=== PATIENT | female | born 1950 | race Caucasian/White ===

== ENCOUNTER 2025-02-08 19:31 | Observation (INO) ==
[2025-02-08 20:06] LABS: Hematocrit (blood only) 24.1 % (37.0-47.0); Hemoglobin 7.4 g/dl (12.0-16.0); Immature Granulocytes # (auto) 0.01 K/uL (0.01-0.20); Immature Granulocytes % (auto) 0.4 %; Mean Corpuscular Hemoglobin 30.3 pg (25.0-34.0); Mean Corpuscular Volume 98.8 fL (80.0-100.0); Platelet Count 91 K/uL (130-400); RDW Standard Deviation 73.8 fL (36.4-46.3); Red Blood Count 2.44 M/uL (4.20-5.40); White Blood Count 2.27 K/ul (4.8-10.8)
[2025-02-08 20:28] LABS: Anisocytosis Present; Polychromasia 1+
[2025-02-08 20:29] LABS: Alanine Aminotransferase 26.0 U/L (7-52); Albumin Globulin Ratio 1.6 (0.9-2); Alkaline Phosphatase 90.0 U/L (34-104); Anion Gap 12.0 (3-11); Bilirubin,Total 1.3 mg/dl (0.2-1.0); Blood Urea Nitrogen 43.0 mg/dl (6-23); Calcium 9.4 mg/dl (8.6-10.3); Carbon Dioxide 20.0 mmol/L (21-32); Chloride 108.0 mmol/L (98-107); Creatinine Clr Calc Pharmacy 21.3 ml/min; Globulin 2.0 gm/dl (2.5-4.0); Glucose 236.0 mg/dl (70-99(Fasting)); Magnesium 1.8 mg/dl (1.7-2.4); Potassium 4.0 mmol/L (3.5-5.1); Sodium 140.0 mmol/L (136-145); Total Protein 5.2 gm/dl (6.0-8.3)
[2025-02-08 20:46] LABS: INR 1.2 (0.9-1.1); Partial Thromboplastin Time 25 Seconds (21-31); Prothrombin Time 12.4 Seconds (9.0-12.0)
[2025-02-08 20:48] LABS: Thyroid Stimulating Hormone 5.294 uIu/ml (0.300-4.500)
--- NOTE | 2025-02-08 21:11 | Emergency Department Note ---
Impression & Plan Anemia Admission ED Provider Note HPI: History obtained from patient. The patient is a 75-year-old female who presents the emergency department with a chief complaint of weakness/fatigue and confusion. Patient has a history of iron deficiency anemia, thrombocytopenia, chronic kidney disease, cirrhosis of the liver. According to the patient's [id number] at the bedside, the patient has been receiving transfusions weekly and following with hematology/oncology through [facility] [place]. She was recently admitted to [facility], where she had a bone marrow biopsy as well as EGD and colonoscopy that the patient's [id number] tells me were ultimately unrevealing as an obvious source for the patient's anemia. Today the patient seemed to have some confusion, she was generally weak. She did not appear to be at her baseline and therefore she was brought into the ER to be assessed. On arrival here to the ED the patient is hemodynamically stable, she is alert and oriented x 3, she does not have any obvious focal deficits on my initial assessment. ROS: - Per HPI Differential Diagnosis: Symptomatic anemia, ammonia, urinary tract infection, stroke, intracranial hemorrhage, hepatic encephalopathy, viral infection, amongst other potential pathologies. *Outpatient medications and allergy history reviewed. PE: General: Alert, no acute distress HEENT: Normocephalic, trachea midline Eyes: Extraocular eye movement is intact, no scleral erythema Pulmonary: Clear to auscultation bilaterally, no wheezing Cardio: Regular rate and rhythm GI: Abdomen is soft to palpation : No suprapubic tenderness MSK: No evidence of trauma or malformation of the extremities, no edema Skin: No evidence of rash Neuro: Alert, no focal deficits Psychiatric: Cooperative INDEPENDENT INTERPRETATIONS: panel monitor: (As interpreted by myself): - An order was placed for continuous cardiac monitoring - Patient was noted to be in sinus rhythm with a rate of 95 EKG: (As interpreted by myself): Rate: 99 Rhythm: Normal sinus rhythm Intervals: Within normal limits ST changes: No ST elevation Time: 1958 Chest x-ray: (As interpreted by myself): No focal infiltrate Interventions provided in ED: - IV fluid bolus, packed red blood cells ordered Medical Decision Making: IV was established and lab work obtained, patient was placed on electronic device monitor. Lab work shows a mild leukopenia at 2.27 which is mildly changed from earlier this month, hemoglobin is stable at 7.4 which appears to be just slightly below the patient's baseline. Platelet count is 91, also at apparent baseline for the patient. CMP shows creatinine of 1.89 which the patient's family states is near her baseline. Glucose is elevated at 236, magnesium is normal, sodium is normal, potassium is normal, troponin is negative x 1. EKG per my interpretation does not show any evidence of any acute ischemic changes. Urinalysis shows trace leukocyte esterase but otherwise no evidence of infection. Alcohol level is negative. Ammonia level is pending. CT imaging of the head does not show any evidence of any acute intracranial process. The patient is alert and oriented here and does not have any focal deficits, overall unclear source for her symptoms of confusion earlier today. Given her anemia and the fact that she is scheduled for transfusion tomorrow, I think would be reasonable to admit her to the hospital overnight for observation and order her PRBC transfusion today. I discussed this with the patient and with her family member at the bedside, they are in agreement for admission. Her presentation was discussed with the on-call hospitalist, Dr. Paz, the patient was placed for admission in stable condition. Consultants/Discussions held with other healthcare providers: - Hospitalist, Dr. Paz Disposition discussion held by myself with: - Patient and patient's family at the bedside Diagnosis: 1. Generalized weakness/fatigue, acute 2. Symptomatic anemia, acute 3. Chronic kidney disease 4. Leukopenia, chronic 5. Thrombocytopenia, chronic 6. Confusion, acute Disposition: Admission Arnaldo Garland DO Emergency Medicine Past Med/Surg History Problem List (Updated 02/09/25 @ 00:42 by Arnaldo Garland DO) Anemia (Acute) Confusion Medical History (Updated 02/09/25 @ 00:42 by Arnaldo Garland DO) Gout Chronic kidney disease GERD (gastroesophageal reflux disease) Cirrhosis Anemia Glaucoma Hypothyroidism Surgical History (Updated 10/26/24 @ 07:34 by Nola Foreman RN) Tubal ligation status History of breast biopsy Social History Smoking Status: Never smoker Preferred Language: Montserratian Feels Safe at Home: Yes Allergies Allergies Allergy/AdvReac Type Severity Reaction Status Date / Time diphenhydramine Allergy Intermediate Rash Verified 02/08/25 21:22 [From Benadryl] Sulfa (Sulfonamide Allergy Intermediate Rash Verified 02/08/25 21:22 Antibiotics) Home Meds Home Medications Medication Instructions Recorded Confirmed allopurinol 100 mg tablet 100 mg PO DAILY 10/26/24 02/08/25 bumetanide 1 mg tablet 1 mg PO 3XWK 10/26/24 02/08/25 coenzyme Q10 10 mg capsule (Co 10 mg PO DAILY 10/26/24 02/08/25 Q-10) garlic 1,000 mg capsule 1,000 mg PO DAILY 10/26/24 02/08/25 levothyroxine 75 mcg tablet 75 mcg PO DAILYBB 10/26/24 02/08/25 (Synthroid) omeprazole 20 mg capsule,delayed 20 mg PO DAILY 10/26/24 02/08/25 release spironolactone 50 mg tablet 50 mg PO DAILY 10/26/24 02/08/25 ferrous sulfate 325 mg (65 mg 325 mg PO DAILY 02/08/25 02/08/25 iron) tablet (iron) magnesium oxide 300 mg PO DAILY 02/08/25 02/08/25 peg 400-propylene glycol 0.4 %-0.3 1 drp ophthalmic (eye) HS PRN Dry 02/08/25 02/08/25 % eye gel drops (GenTeal Tears Eyes Severe Gel Drops) vit C 250 mg-vit E 90 mg-zinc 40 1 tab PO BID 02/08/25 02/08/25 mg-copper 1 [id number] capsule (PreserVision AREDS-2) Results & Data (ED) Vital Signs Vital Signs - 24 hr 02/08/25 19:36 02/08/25 19:39 02/08/25 19:39 Temperature 36.0 C L Temperature Source Temporal Artery Scan Pulse Rate 97 H Pulse Rate from SpO2 Sensor Respiratory Rate 17 Respiratory Effort / Characteristics Non-Labored Spontaneous Respiratory Depth Normal Respiratory Pattern Regular Blood Pressure 128/57 L Blood Pressure Mean 80 Pulse Oximetry 100 99 Oxygen Delivery Method Room Air Room Air Room Air Sepsis Recent Fever Within 48 Hours No Sepsis New/Unexplained Change in Mental Status Yes Sepsis Action Taken by Nursing No Action Required 02/08/25 20:32 02/08/25 20:45 02/08/25 22:00 Temperature Temperature Source Pulse Rate 96 H 98 H 98 H Pulse Rate from SpO2 Sensor 98 H 98 H Respiratory Rate 23 22 Respiratory Effort / Characteristics Respiratory Depth Respiratory Pattern Blood Pressure 132/74 152/67 H Blood Pressure Mean 84 97 Pulse Oximetry Oxygen Delivery Method Sepsis Recent Fever Within 48 Hours Sepsis New/Unexplained Change in Mental Status Sepsis Action Taken by Nursing 02/08/25 23:00 02/09/25 00:09 02/09/25 00:23 Temperature 36.7 C 36.6 C Temperature Source Oral Oral Pulse Rate 94 H 98 H 94 H Pulse Rate from SpO2 Sensor 94 H Respiratory Rate 23 18 18 Respiratory Effort / Characteristics Respiratory Depth Respiratory Pattern Blood Pressure 143/62 H 142/68 H 138/64 Blood Pressure Mean 89 92 88 Pulse Oximetry 96 96 96 Oxygen Delivery Method Sepsis Recent Fever Within 48 Hours Sepsis New/Unexplained Change in Mental Status Sepsis Action Taken by Nursing Laboratory Data 02/08/25 19:49 02/08/25 19:49 Lab Results 02/07/25 02/08/25 02/08/25 Range/Units 16:32 19:49 20:51 WBC 2.27 L (4.8-10.8) K/ul RBC 2.44 L (4.20-5.40) M/uL Hgb 7.4 L (12.0-16.0) g/dl Hct 24.1 L (37.0-47.0) % MCV 98.8 (80.0-100.0) fL MCH 30.3 (25.0-34.0) pg MCHC 30.7 L (32.0-36.0) g/dL RDW Std Deviation 73.8 H (36.4-46.3) fL RDW Coeff of Carly 20.9 H (11.5-14.5) % Plt Count 91 L (130-400) K/uL MPV 10.2 (9.4-12.4) fL Immature Gran % (Auto) 0.4 % Neut % (Auto) 59.5 % Lymph % (Auto) 25.6 % Clare % (Auto) 11.0 % Eos % (Auto) 2.6 % Baso % (Auto) 0.9 % Neut # (Auto) 1.35 L (1.40-6.50) K/uL Lymph # (Auto) 0.58 L (1.20-3.40) K/uL Clare # (Auto) 0.25 (0.11-0.59) K/uL Eos # (Auto) 0.06 (0.00-0.50) K/uL Baso # (Auto) 0.02 (0.00-0.20) K/uL Immature Gran # (Auto) 0.01 (0.01-0.20) K/uL Polychromasia 1+ Anisocytosis Present PT 12.4 H (9.0-12.0) Seconds INR 1.2 H (0.9-1.1) APTT 25 (21-31) Seconds PTT Ratio 0.9 Sodium 140 (136-145) mmol/L Potassium 4.0 (3.5-5.1) mmol/L Chloride 108 H (98-107) mmol/L Carbon Dioxide 20 L (21-32) mmol/L Anion Gap 12 H (3-11) BUN 43 H (6-23) mg/dl Creatinine 1.89 H (0.6-1.2) mg/dl Est Cr Clr Drug Dosing 21.3 ml/min eGFR 27.03 BUN/Creatinine Ratio 22.8 H (10-20) Glucose 236 H (70-99(Fasting)) mg/dl POC Glucose 193 H (70-99) mg/dl Calcium 9.4 (8.6-10.3) mg/dl Magnesium 1.8 (1.7-2.4) mg/dl Total Bilirubin 1.3 H (0.2-1.0) mg/dl AST 40 H (13-39) U/L ALT 26 (7-52) U/L Alkaline Phosphatase 90 (34-104) U/L Troponin I High Sens 12.0 (0-14) pg/ml Total Protein 5.2 L (6.0-8.3) gm/dl Albumin 3.2 L (3.4-5.0) gm/dl Globulin 2.0 L (2.5-4.0) gm/dl Albumin/Globulin Ratio 1.6 (0.9-2) TSH 5.294 H (0.300-4.500) uIu/ml Urine Color Urine Appearance (Clear) Urine pH (4.5-7.5) Ur Specific [place] (1.000-1.030) Urine Protein (Negative) Urine Glucose (UA) (Negative) Urine Ketones (Negative) Urine Blood (Negative) Urine Nitrite (Negative) Urine Bilirubin (Negative) Urine Urobilinogen (Negative) Ur Leukocyte Esterase (Negative) Urine WBC (Auto) (0-5) /hpf Urine RBC (Auto) (0-2) /hpf U Hyaline Cast (Auto) (0-2) /lpf U Epithel Cells (Auto) (0-2) /hpf Urine Bacteria (Auto) (None Seen) Urine Comment Ethyl Alcohol mg/dL (<10.0) mg/dl Crossmatch See Detail 02/08/25 02/08/25 Range/Units 20:55 23:23 WBC (4.8-10.8) K/ul RBC (4.20-5.40) M/uL Hgb (12.0-16.0) g/dl Hct (37.0-47.0) % MCV (80.0-100.0) fL MCH (25.0-34.0) pg MCHC (32.0-36.0) g/dL RDW Std Deviation (36.4-46.3) fL RDW Coeff of Carly (11.5-14.5) % Plt Count (130-400) K/uL MPV (9.4-12.4) fL Immature Gran % (Auto) % Neut % (Auto) % Lymph % (Auto) % Clare % (Auto) % Eos % (Auto) % Baso % (Auto) % Neut # (Auto) (1.40-6.50) K/uL Lymph # (Auto) (1.20-3.40) K/uL Clare # (Auto) (0.11-0.59) K/uL Eos # (Auto) (0.00-0.50) K/uL Baso # (Auto) (0.00-0.20) K/uL Immature Gran # (Auto) (0.01-0.20) K/uL Polychromasia Anisocytosis PT (9.0-12.0) Seconds INR (0.9-1.1) APTT (21-31) Seconds PTT Ratio Sodium (136-145) mmol/L Potassium (3.5-5.1) mmol/L Chloride (98-107) mmol/L Carbon Dioxide (21-32) mmol/L Anion Gap (3-11) BUN (6-23) mg/dl Creatinine (0.6-1.2) mg/dl Est Cr Clr Drug Dosing ml/min eGFR BUN/Creatinine Ratio (10-20) Glucose (70-99(Fasting)) mg/dl POC Glucose (70-99) mg/dl Calcium (8.6-10.3) mg/dl Magnesium (1.7-2.4) mg/dl Total Bilirubin (0.2-1.0) mg/dl AST (13-39) U/L ALT (7-52) U/L Alkaline Phosphatase (34-104) U/L Troponin I High Sens (0-14) pg/ml Total Protein (6.0-8.3) gm/dl Albumin (3.4-5.0) gm/dl Globulin (2.5-4.0) gm/dl Albumin/Globulin Ratio (0.9-2) TSH (0.300-4.500) uIu/ml Urine Color Yellow Urine Appearance Clear (Clear) Urine pH 6.5 (4.5-7.5) Ur Specific [place] 1.007 (1.000-1.030) Urine Protein Negative (Negative) Urine Glucose (UA) Negative (Negative) Urine Ketones Negative (Negative) Urine Blood Negative (Negative) Urine Nitrite Negative (Negative) Urine Bilirubin Negative (Negative) Urine Urobilinogen Negative (Negative) Ur Leukocyte Esterase Trace H (Negative) Urine WBC (Auto) 0-5 (0-5) /hpf Urine RBC (Auto) 0-2 (0-2) /hpf U Hyaline Cast (Auto) 0-2 (0-2) /lpf U Epithel Cells (Auto) 0-2 (0-2) /hpf Urine Bacteria (Auto) None Seen (None Seen) Urine Comment Ethyl Alcohol mg/dL < 10.0 (<10.0) mg/dl Crossmatch Administered Medications Discontinued Medications Sodium Chloride (Nss) 500 mls @ 999 mls/hr IV .Q31M ONE Stop: 02/08/25 21:39 Last Infusion: 02/08/25 22:48 Dose: Infused Documented By: Admin: 02/08/25 22:17 Dose: 999 mls/hr Documented By: DIANA Imaging Data Radiologist's Impression: Chest X-Ray 02/08/25 19:39 Exam(s): XR CXR 1 VIEW EXAM: XR Chest, 1 View CLINICAL HISTORY: Reason for exam: Weakness. TECHNIQUE: Frontal view of the chest. COMPARISON: No relevant prior studies available. FINDINGS: Lungs: Artifact of the lung bases from large body habitus and portable technique. Small amount of infiltrate or atelectasis may be present within the left costophrenic angle. The lungs are otherwise clear. Pleural space: Unremarkable. No pneumothorax. Heart: Unremarkable. No cardiomegaly. Mediastinum: Unremarkable. Normal mediastinal contour. Bones/joints: Unremarkable. No acute fracture. Upper abdomen: Unremarkable as visualized. No pneumoperitoneum under the diaphragm. IMPRESSION: Artifact of the lung bases from large body habitus and portable technique. Small amount of infiltrate or atelectasis may be present within the left costophrenic angle. The lungs are otherwise clear. Electronically signed by: Kendall Feldman MD 02/08/25 22:[address] 02/08/25 21:09 Exam(s): CT HEAD Without Contrast EXAM: CT Head Without Intravenous Contrast CLINICAL HISTORY: Reason for exam: AMS. TECHNIQUE: Axial computed tomography images of the head/brain without intravenous contrast. CTDI is 37.32 mGy and DLP is 546.36 mGy-cm. Automated exposure control was utilized for the study. A dose lowering technique was utilized adhering to the principles of ALARA. COMPARISON: No relevant prior studies available. FINDINGS: Brain: Mild periventricular and deep white matter low density consistent with chronic small vessel disease and/or senescent changes. No acute large vessel infarct or intracranial hemorrhage is seen. Ventricles: Unremarkable. No ventriculomegaly. Bones/joints: Unremarkable. No acute fracture. Soft tissues: Unremarkable. Sinuses: Unremarkable as visualized. No acute sinusitis. Mastoid air cells: Unremarkable as visualized. No mastoid effusion. IMPRESSION: Mild periventricular and deep white matter low density consistent with chronic small vessel disease and/or senescent changes. No acute large vessel infarct or intracranial hemorrhage is seen. Electronically signed by: Kendall Feldman MD 02/08/25 22:14 PM Discharge Plan Visit Data Chief Complaint: Confusion Stated Complaint: DOC REFFERAL, CONFUSION, DISORIANTED, WEAK ED Provider: Arnaldo Garland Discharge Problem: Anemia Patient Disposition: Admitted As Inpatient Condition: Fair Forms Stand Alone Forms: [facility] Prescriptions Prescriptions: No Action allopurinol 100 mg Tablet 100 mg PO DAILY levothyroxine [Synthroid] 75 mcg Tablet 75 mcg PO DAILYBB coenzyme Q10 [Co Q-10] 10 mg Capsule 10 mg PO DAILY garlic 1,000 mg Capsule 1,000 mg PO DAILY omeprazole [Prilosec] 20 mg Capsule,Delayed Release(Dr/Ec) 20 mg PO DAILY Rx Instructions: ORDERED 12/20/24 FOR 14 DAYS. bumetanide [Bumex] 1 mg Tablet 1 mg PO 3XWK Rx Instructions: MON, WED, & FRI. spironolactone 50 mg Tablet 50 mg PO DAILY ferrous sulfate [iron] 325 mg (65 mg iron) Tablet 325 mg PO DAILY GenTeal Tears Severe Gel Drops 0.4-0.3 % Drops,Gel 1 drp OPHTHALMIC (EYE) HS PRN (Reason: Dry Eyes) PreserVision AREDS-2 250-90-40-1 mg Capsule 1 tab PO BID magnesium oxide 300 mg magnesium Tablet 300 mg PO DAILY Referrals Referrals: Nichole Araujo MD [Primary Care Provider] - Discharge Problem: Anemia Qualifiers: Anemia type: unspecified type Qualified Code(s): D64.9 - Anemia, unspecified
--- NOTE | 2025-02-08 22:15 | CT Scan Report ---
Exam(s): CT HEAD Without Contrast EXAM: CT Head Without Intravenous Contrast CLINICAL HISTORY: Reason for exam: AMS. TECHNIQUE: Axial computed tomography images of the head/brain without intravenous contrast. CTDI is 37.32 mGy and DLP is 546.36 mGy-cm. Automated exposure control was utilized for the study. A dose lowering technique was utilized adhering to the principles of ALARA. COMPARISON: No relevant prior studies available. FINDINGS: Brain: Mild periventricular and deep white matter low density consistent with chronic small vessel disease and/or senescent changes. No acute large vessel infarct or intracranial hemorrhage is seen. Ventricles: Unremarkable. No ventriculomegaly. Bones/joints: Unremarkable. No acute fracture. Soft tissues: Unremarkable. Sinuses: Unremarkable as visualized. No acute sinusitis. Mastoid air cells: Unremarkable as visualized. No mastoid effusion. IMPRESSION: Mild periventricular and deep white matter low density consistent with chronic small vessel disease and/or senescent changes. No acute large vessel infarct or intracranial hemorrhage is seen. Electronically signed by: Kendall Feldman MD 02/08/25 22:14 PM
[2025-02-08] MEDS: SODIUM CHLORIDE 0.9% 500 ML IV ONE (22:17)
--- NOTE | 2025-02-08 22:24 | XRay Report ---
Exam(s): XR CXR 1 VIEW EXAM: XR Chest, 1 View CLINICAL HISTORY: Reason for exam: Weakness. TECHNIQUE: Frontal view of the chest. COMPARISON: No relevant prior studies available. FINDINGS: Lungs: Artifact of the lung bases from large body habitus and portable technique. Small amount of infiltrate or atelectasis may be present within the left costophrenic angle. The lungs are otherwise clear. Pleural space: Unremarkable. No pneumothorax. Heart: Unremarkable. No cardiomegaly. Mediastinum: Unremarkable. Normal mediastinal contour. Bones/joints: Unremarkable. No acute fracture. Upper abdomen: Unremarkable as visualized. No pneumoperitoneum under the diaphragm. IMPRESSION: Artifact of the lung bases from large body habitus and portable technique. Small amount of infiltrate or atelectasis may be present within the left costophrenic angle. The lungs are otherwise clear. Electronically signed by: Kendall Feldman MD 02/08/25 22:23 PM
[2025-02-08] MEDS ORDERED: SODIUM CHLORIDE 0.9% 100 ML IV PRN (22:44)
[2025-02-08 23:37] LABS: Appearance Urine Clear (Clear); Bacteria Urine Automated None Seen (None Seen); Cast Urine Automated 0-2 /lpf (0-2); Epithelial Cell Urine Auto 0-2 /hpf (0-2); Glucose Urine UA Negative (Negative); RBC Urine Automated 0-2 /hpf (0-2); WBC Urine Automated 0-5 /hpf (0-5)
--- NOTE | 2025-02-09 00:32 | History & Physical Report ---
Date of Service February 09, 2025 Assessment & Plan (1) Confusion: Plan: 75-year-old female with past medical history significant for hereditary hemochromatosis, hyperlipidemia,hypothyroidism, idiopathic esophageal varices with bleeding, hypertension, cirrhosis of liver with ascites, acute duodenal ulcer, GERD, TONNY, CKD stage III, muscle cramps, generalized osteoarthritis, pancytopenia, symptomatic anemia, fibrocystic disease of breast who lives alone at home was brought in by [id number] because of confusion. As per daughter in law the patient was not answering text and when they went to check on her she seemed confused. Somewhat off balance. Generally ambulates without support. Could not remember the dates. Currently seems to be better as per [id number]. Currently patient able to tell her name. Knows that she is in the hospital. Could tell her date of . Could tell current month and date. Somewhat slow to answer. Denies any headache. Denies neck pain. Denies chest pain. Denies abdominal pain. Denies any pain in the legs. No cough. No feeling hot or cold. No nausea. No diarrhea or constipation. Micturating okay. Hemodynamics are okay. Patient was recently at [facility] and was discharged on 02/02/2025. She was admitted there for symptomatic anemia and workup was mostly unremarkable. She received 2 units of PRBC.. S/p EGD/colonoscopy and no bleeding was found. Bleeding scan was okay. GI planned for outpatient capsule endoscopy. Infection workup was negative for EBV, hepatitis B Anaplasma and Lyme. Advised not to take garlic supplement. She also had bone marrow biopsy and as per heme-onc notes on epic most likely she may have myelodysplasia syndrome and also possible ongoing GI blood loss causing acute on chronic anemia and also renal insufficiency contributing to anemia. As per [id number]-rx-uko the bone marrow biopsy results were not yet discussed with heme-onc. Heme-onc is planning to fax bone marrow report to Dr. Joao Calixto in [facility] and then to discuss about the results.As per [id number] her brought the patient to the hospital for type and crossmatch yesterday and she seemed okay at that time. And there was plan for blood transfusion in a.m. Patient for about last six weeks getting weekly blood transfusions. Hepatic encephalopathy Confusion UA is negative CT head unremarkable Will follow ammonia levels- cmae back elevated at 91 ordered lactulose Gi consult close monitor Pancytopenia Acute on chronic anemia Iron deficiency anemia Liver cirrhosis History of hematochromatosis Recent EGD and colonoscopy were unremarkable. There was a plan for capsule endoscopy. Recent Bleeding scan was okay. Bone marrow biopsy results Dr. Smith wants to discuss with [facility]. Follow-up with heme-onc Last 6 weeks patient getting weekly blood transfusions. There is a plan to get PRBC tomorrow. ER ordered 2 units of PRBC which will be given Will follow the labs Hypothyroidism On Synthyroid TSH 5.2 Follow-up with PCP GERD On omeprazole Liver cirrhosis Lower extremity edema Continue home Bumex and spironolactone Follow Dopplers Gout On allopurinol CKD stage III Presents creatinine 1.8 which seems to be around baseline We will follow labs DVT prophylaxis SCDs for now Monitor platelets Disposition Med/telemetry Full code History of Present Illness Chief Complaint: Confusion and anemia Primary Care Provider: Nichole Araujo MD 75-year-old female with past medical history significant for hereditary hemochromatosis, hyperlipidemia,hypothyroidism, idiopathic esophageal varices with bleeding, hypertension, cirrhosis of liver with ascites, acute duodenal ulcer, GERD, TONNY, CKD stage III, muscle cramps, generalized osteoarthritis, pancytopenia, symptomatic anemia, fibrocystic disease of breast who lives alone at home was brought in by [id number]-av-zuf because of confusion. As per daughter in law the patient was not answering text and when they went to check on her she seemed confused. Somewhat off balance. Generally ambulates without support. Could not remember the dates. Currently seems to be better as per [id number]-[id number]. Currently patient able to tell her name. Knows that she is in the hospital. Could tell her date of . Could tell current month and date. Somewhat slow to answer. Denies any headache. Denies neck pain. Denies chest pain. Denies abdominal pain. Denies any pain in the legs. No cough. No feeling hot or cold. No nausea. No diarrhea or constipation. Micturating okay. Hemodynamics are okay. Patient was recently at [facility] and was discharged on 02/02/2025. She was admitted there for symptomatic anemia and workup was mostly unremarkable. She received 2 units of PRBC.. S/p EGD/colonoscopy and no bleeding was found. Bleeding scan was okay. GI planned for outpatient capsule endoscopy. Infection workup was negative for EBV, hepatitis B Anaplasma and Lyme. Advised not to take garlic supplement. She also had bone marrow biopsy and as per heme-onc notes on epic most likely she may have myelodysplasia syndrome and also possible ongoing GI blood loss causing acute on chronic anemia and also renal insufficiency contributing to anemia. As per [id number] the bone marrow biopsy results were not yet discussed with heme-onc. Heme-onc is planning to fax bone marrow report to Dr. Joao Calixto in [facility] and then to discuss about the results.As per [id number] her brought the patient to the hospital for type and crossmatch yesterday and she seemed okay at that time. And there was plan for blood transfusion in a.m. Patient for about last six weeks getting weekly blood transfusions. Past medical history. As mentioned above. Past surgical history. Colonoscopy or EGD. Social history. . No smoking. No alcohol use. No drug use. Family history. No family history on file Allergies Allergy/AdvReac Type Severity Reaction Status Date / Time diphenhydramine Allergy Intermediate Rash Verified 02/08/25 21:22 [From Benadryl] Sulfa (Sulfonamide Allergy Intermediate Rash Verified 02/08/25 21:22 Antibiotics) Home Medications Medication Instructions Recorded Confirmed Type allopurinol 100 mg tablet 100 mg PO DAILY 10/26/24 02/08/25 History bumetanide 1 mg tablet 1 mg PO 3XWK 10/26/24 02/08/25 History coenzyme Q10 10 mg capsule (Co 10 mg PO DAILY 10/26/24 02/08/25 History Q-10) garlic 1,000 mg capsule 1,000 mg PO DAILY 10/26/24 02/08/25 History levothyroxine 75 mcg tablet 75 mcg PO DAILYBB 10/26/24 02/08/25 History (Synthroid) omeprazole 20 mg capsule,delayed 20 mg PO DAILY 10/26/24 02/08/25 History release spironolactone 50 mg tablet 50 mg PO DAILY 10/26/24 02/08/25 History ferrous sulfate 325 mg (65 mg 325 mg PO DAILY 02/08/25 02/08/25 History iron) tablet (iron) magnesium oxide 300 mg PO DAILY 02/08/25 02/08/25 History peg 400-propylene glycol 0.4 %-0.3 1 drp ophthalmic (eye) HS PRN Dry 02/08/25 02/08/25 History % eye gel drops (GenTeal Tears Eyes Severe Gel Drops) vit C 250 mg-vit E 90 mg-zinc 40 1 tab PO BID 02/08/25 02/08/25 History mg-copper 1 bl-fakssu-xuiwhj capsule (PreserVision AREDS-2) Past Med/Surg History Problem List (Updated 02/09/25 @ 00:42 by Arnaldo Garland DO) Anemia (Acute) Confusion Medical History (Updated 02/09/25 @ 00:42 by Arnaldo Garland DO) Gout Chronic kidney disease GERD (gastroesophageal reflux disease) Cirrhosis Anemia Glaucoma Hypothyroidism Surgical History (Updated 10/26/24 @ 07:34 by Nola Foreman RN) Tubal ligation status History of breast biopsy Social History Smoking Status: Never smoker Second Hand Exposure: No; Do You Dip or Chew Tobacco: No; Tobacco Cessation Education Requested by Patient: No Hx Alcohol Use: No Hx Substance Use: No Preferred Language: Icelandic Communication Ability: Effective [employer]able [employer] Work[employer] Required: No Beliefs That Will Affect Care: None Current Living Situation: Alone Other Information That Helps Us Care for You: No Feels Safe at Home: Yes Safety Concerns: Feels Safe At This Time Assistive Devices: None Review of Systems Review of Systems: All systems reviewed & are unremarkable except as noted in HPI & below Physical Exam Physical Exam: General- Not in acute distress Head- atraumatic Eyes- PERRL. ENT- oropharynx clear Neck- supple, no JVD. Lungs- clear to auscultation no wheezing or crackles Heart- regular rhythm; no murmur, no gallop. Abdomen- normal bowel sounds, soft, nontender, no distension Extremities- b/l lower ext edema present, no erythema seen Neuro- alert, oriented x 3; PERRL, no facial palsy; no dysarthria; moves extremities Results & Data Results & Data Vital Signs (Past 12 Hours) Vital Signs Temp Pulse Resp BP Pulse Ox O2 Del Method 02/09/25 00:23 36.6 C 94 H 18 138/64 96 02/09/25 00:09 36.7 C 98 H 18 142/68 H 96 02/08/25 23:00 94 H 23 143/62 H 96 02/08/25 22:00 98 H 22 152/67 H 02/08/25 20:45 98 H 23 132/74 02/08/25 20:32 96 H 02/08/25 19:39 99 Room Air 02/08/25 19:39 Room Air 02/08/25 19:36 36.0 C L 97 H 17 128/57 L 100 Room Air Diagnostic Findings Laboratory Results WBC 2.27 K/ul (4.8-10.8) L 02/08/25 19:49 RBC 2.44 M/uL (4.20-5.40) L 02/08/25 19:49 Hgb 7.4 g/dl (12.0-16.0) L 02/08/25 19:49 Hct 24.1 % (37.0-47.0) L 02/08/25 19:49 MCV 98.8 fL (80.0-100.0) 02/08/25 19:49 MCH 30.3 pg (25.0-34.0) 02/08/25 19:49 MCHC 30.7 g/dL (32.0-36.0) L 02/08/25 19:49 RDW Std Deviation 73.8 fL (36.4-46.3) H 02/08/25 19:49 RDW Coeff of Carly 20.9 % (11.5-14.5) H 02/08/25 19:49 Plt Count 91 K/uL (130-400) L 02/08/25 19:49 MPV 10.2 fL (9.4-12.4) 02/08/25 19:49 Immature Gran % (Auto) 0.4 % 02/08/25 19:49 Neut % (Auto) 59.5 % 02/08/25 19:49 Lymph % (Auto) 25.6 % 02/08/25 19:49 Baker % (Auto) 11.0 % 02/08/25 19:49 Eos % (Auto) 2.6 % 02/08/25 19:49 Baso % (Auto) 0.9 % 02/08/25 19:49 Neut # (Auto) 1.35 K/uL (1.40-6.50) L 02/08/25 19:49 Lymph # (Auto) 0.58 K/uL (1.20-3.40) L 02/08/25 19:49 Baker # (Auto) 0.25 K/uL (0.11-0.59) 02/08/25 19:49 Eos # (Auto) 0.06 K/uL (0.00-0.50) 02/08/25 19:49 Baso # (Auto) 0.02 K/uL (0.00-0.20) 02/08/25 19:49 Immature Gran # (Auto) 0.01 K/uL (0.01-0.20) 02/08/25 19:49 Polychromasia 1+ 02/08/25 19:49 Anisocytosis Present 02/08/25 19:49 PT 12.4 Seconds (9.0-12.0) H 02/08/25 19:49 INR 1.2 (0.9-1.1) H 02/08/25 19:49 APTT 25 Seconds (21-31) 02/08/25 19:49 PTT Ratio 0.9 02/08/25 19:49 Sodium 140 mmol/L (136-145) 02/08/25 19:49 Potassium 4.0 mmol/L (3.5-5.1) 02/08/25 19:49 Chloride 108 mmol/L (98-107) H 02/08/25 19:49 Carbon Dioxide 20 mmol/L (21-32) L 02/08/25 19:49 Anion Gap 12 (3-11) H 02/08/25 19:49 BUN 43 mg/dl (6-23) H 02/08/25 19:49 Creatinine 1.89 mg/dl (0.6-1.2) H 02/08/25 19:49 Est Cr Clr Drug Dosing 21.3 ml/min 02/08/25 19:49 eGFR 27.03 02/08/25 19:49 BUN/Creatinine Ratio 22.8 (10-20) H 02/08/25 19:49 Glucose 236 mg/dl (70-99(Fasting)) H 02/08/25 19:49 POC Glucose 193 mg/dl (70-99) H 02/08/25 20:51 Calcium 9.4 mg/dl (8.6-10.3) 02/08/25 19:49 Magnesium 1.8 mg/dl (1.7-2.4) 02/08/25 19:49 Total Bilirubin 1.3 mg/dl (0.2-1.0) H 02/08/25 19:49 AST 40 U/L (13-39) H 02/08/25 19:49 ALT 26 U/L (7-52) 02/08/25 19:49 Alkaline Phosphatase 90 U/L (34-104) 02/08/25 19:49 Troponin I High Sens 12.0 pg/ml (0-14) 02/08/25 19:49 Total Protein 5.2 gm/dl (6.0-8.3) L 02/08/25 19:49 Albumin 3.2 gm/dl (3.4-5.0) L 02/08/25 19:49 Globulin 2.0 gm/dl (2.5-4.0) L 02/08/25 19:49 Albumin/Globulin Ratio 1.6 (0.9-2) 02/08/25 19:49 TSH 5.294 uIu/ml (0.300-4.500) H 02/08/25 19:49 Urine Color Yellow 02/08/25 23:23 Urine Appearance Clear (Clear) 02/08/25 23:23 Urine pH 6.5 (4.5-7.5) 02/08/25 23:23 Ur Specific [place] 1.007 (1.000-1.030) 02/08/25 23:23 Urine Protein Negative (Negative) 02/08/25 23:23 Urine Glucose (UA) Negative (Negative) 02/08/25 23:23 Urine Ketones Negative (Negative) 02/08/25 23:23 Urine Blood Negative (Negative) 02/08/25 23:23 Urine Nitrite Negative (Negative) 02/08/25 23:23 Urine Bilirubin Negative (Negative) 02/08/25 23:23 Urine Urobilinogen Negative (Negative) 02/08/25 23:23 Ur Leukocyte Esterase Trace (Negative) H 02/08/25 23:23 Urine WBC (Auto) 0-5 /hpf (0-5) 02/08/25 23:23 Urine RBC (Auto) 0-2 /hpf (0-2) 02/08/25 23:23 U Hyaline Cast (Auto) 0-2 /lpf (0-2) 02/08/25 23:23 U Epithel Cells (Auto) 0-2 /hpf (0-2) 02/08/25 23:23 Urine Bacteria (Auto) None Seen (None Seen) 02/08/25 23:23 Urine Comment 02/08/25 23:23 Ethyl Alcohol mg/dL < 10.0 mg/dl (<10.0) 02/08/25 20:55 Crossmatch See Detail 02/07/25 16:32 Impressions Chest X-Ray 02/08/25 19:39 Exam(s): XR CXR 1 VIEW EXAM: XR Chest, 1 View CLINICAL HISTORY: Reason for exam: Weakness. TECHNIQUE: Frontal view of the chest. COMPARISON: No relevant prior studies available. FINDINGS: Lungs: Artifact of the lung bases from large body habitus and portable technique. Small amount of infiltrate or atelectasis may be present within the left costophrenic angle. The lungs are otherwise clear. Pleural space: Unremarkable. No pneumothorax. Heart: Unremarkable. No cardiomegaly. Mediastinum: Unremarkable. Normal mediastinal contour. Bones/joints: Unremarkable. No acute fracture. Upper abdomen: Unremarkable as visualized. No pneumoperitoneum under the diaphragm. IMPRESSION: Artifact of the lung bases from large body habitus and portable technique. Small amount of infiltrate or atelectasis may be present within the left costophrenic angle. The lungs are otherwise clear. Electronically signed by: Kendall Feldman MD 02/08/25 22:[address] 02/08/25 21:09 Exam(s): CT HEAD Without Contrast EXAM: CT Head Without Intravenous Contrast CLINICAL HISTORY: Reason for exam: AMS. TECHNIQUE: Axial computed tomography images of the head/brain without intravenous contrast. CTDI is 37.32 mGy and DLP is 546.36 mGy-cm. Automated exposure control was utilized for the study. A dose lowering technique was utilized adhering to the principles of ALARA. COMPARISON: No relevant prior studies available. FINDINGS: Brain: Mild periventricular and deep white matter low density consistent with chronic small vessel disease and/or senescent changes. No acute large vessel infarct or intracranial hemorrhage is seen. Ventricles: Unremarkable. No ventriculomegaly. Bones/joints: Unremarkable. No acute fracture. Soft tissues: Unremarkable. Sinuses: Unremarkable as visualized. No acute sinusitis. Mastoid air cells: Unremarkable as visualized. No mastoid effusion. IMPRESSION: Mild periventricular and deep white matter low density consistent with chronic small vessel disease and/or senescent changes. No acute large vessel infarct or intracranial hemorrhage is seen. Electronically signed by: Kendall Feldman MD 02/08/25 22:14 PM ECG Additional Comments: ECG. Normal sinus rhythm with rate of 99. No acute ST changes seen. QTc 428 Code Status & VTE Plan VTE Prophylaxis Plan VTE Prophylaxis will be ordered: Yes
[2025-02-09] MEDS: LACTULOSE SYRUP 20 GM/30 ML UDC PO STA (01:19)
[2025-02-09] MEDS ORDERED: NITROGLYCERIN SL 0.4 MG/TAB TAB SL PRN (01:27)
[2025-02-09] MEDS ORDERED: ARTIFICIAL TEARS OP PRN (01:52)
[2025-02-09 06:00] LABS: Hematocrit (blood only) 30.4 % (37.0-47.0); Hemoglobin 9.7 g/dl (12.0-16.0)
[2025-02-09 07:36] LABS: Hematocrit (blood only) 28.2 % (37.0-47.0); Hemoglobin 9.1 g/dl (12.0-16.0); Immature Granulocytes # (auto) 0.01 K/uL (0.01-0.20); Immature Granulocytes % (auto) 0.5 %; Mean Corpuscular Hemoglobin 30.1 pg (25.0-34.0); Mean Corpuscular Volume 93.4 fL (80.0-100.0); Platelet Count 67 K/uL (130-400); RDW Standard Deviation 65.1 fL (36.4-46.3); Red Blood Count 3.02 M/uL (4.20-5.40); White Blood Count 1.90 K/ul (4.8-10.8)
[2025-02-09 07:56] LABS: Anion Gap 8.0 (3-11); Blood Urea Nitrogen 38.0 mg/dl (6-23); Calcium 9.1 mg/dl (8.6-10.3); Carbon Dioxide 21.0 mmol/L (21-32); Chloride 114.0 mmol/L (98-107); Creatinine Clr Calc Pharmacy 24.6 ml/min; Glucose 131.0 mg/dl (70-99(Fasting)); Magnesium 1.7 mg/dl (1.7-2.4); Potassium 3.7 mmol/L (3.5-5.1); Sodium 143.0 mmol/L (136-145)
[2025-02-09] MEDS: LEVOTHYROXINE SODIUM 75 MCG TABLET PO SCH (07:57)
--- NOTE | 2025-02-09 08:53 | Ultrasound Report ---
BILATERAL LOWER EXTREMITY VENOUS DOPPLER HISTORY: Acute pain and swelling of the lower legs b/l lower ext edema. dvt? COMPARISON STUDY: None. FINDINGS: Subcutaneous edema. There is normal compressibility, flow, and augmentation within the bila teral lower extremity deep venous systems. IMPRESSION: No DVT within the right or left lower extremity. ACT 112: Negative or not required by law. Electronically signed by: Ken Mullins M.D. 02/09/2025 8:52 AM
[2025-02-09] MEDS ORDERED: FERROUS SULFATE 325 MG TAB PO SCH (09:00)
[2025-02-09] MEDS ORDERED: NON-FORMULARY MEDICATION (Coenzyme Q10 [Co Q-10] 10 mg Capsule) PO SCH (09:00)
[2025-02-09] MEDS ORDERED: BUMETANIDE 1 MG TAB PO SCH (09:00)
--- NOTE | 2025-02-09 09:02 | Gastrointestinal Consultation ---
Date of Consultation February 09, 2025 Assessment & Plan (1) Confusion: 75 year old female with history of ?myelodysplastic syndrome, iron deficiency anemia, hereditary hemochromatosis requiring phlebotomies, cirrhosis with splenomegaly, portal hypertension, thrombocytopenia, GERD, duodenal ulcer, hypothyroidism, CKD stage III admitted w/ confusion - elevated ammonia 1. Confusion, elevated ammonia - Rule out infections - Blood cultures - Urine cultures - Chest XR - Head CT - ABD US to assess for ascites - Start lactulose titrated to 2/3 BMs daily - Frequent mental status evaluation 2. Cirrhosis - MELD 14 - MELD labs every 6 months - ABD imaging w/ AFP every 6 months - EGD every 1-2 years - No ETOH - No NSAIDs - Avoid hepatotoxin - Low NA diet, less than 2G daily - Less than 2G acetaminophen containing products daily 3. SHAR - Recent EGD/Colonoscopy this month - Continue with recommendations per OP [facility] GI/Hepatology GI - Agree w/ hematology evaluation I spent a total of 60 minutes on the date of service in review of patient's record, and previously obtained information in person and appropriate medical visit, discussion and education of plan, with patient and/or caregiver, placing orders for tests/referral/procedures as medically necessary and documentation of pertinent clinical information in patient's medical records for their visit today. Supervising Physician Co-Signing Physician Notes The patient was seen and evaluated. Hospital labs, data, records and imaging reviewed at length. The case was discussed and reviewed with the GI nurse practitioner and I agree with her assessment plan as outlined above. Treatment plan was discussed with the patient and her daughter present at the time of interview. 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 I agree with workup for underlying infection. The patient also is undergoing iron deficiency workup and is now status post EGD and colonoscopy. She is pending small bowel evaluation. It is certainly possible that she has small bowel AVM's as are more common in patients with cirrhotic liver disease with a chronic indolent type bleeding making her more prone to hepatic encephalopathy. The patient is advised to continue lactulose. Consider adding Xifaxan 550 mg p.o. twice daily if refractory. Thank you for the courtesy of this consultation. History of Present Illness Reason for Consultation: elevated ammonia Requesting Physician: Frankie Gold MD Attending Physician: Frankie Gold MD History of Present Illness 75 year old female with history of ?myelodysplastic syndrome, iron deficiency anemia, hereditary hemochromatosis requiring phlebotomies, cirrhosis with splenomegaly, portal hypertension, thrombocytopenia, GERD, duodenal ulcer, hypothyroidism, CKD stage III admitted w/ confusion. Per family/patient she was feeling fatigued/weak since discharge from [facility]. Daughter grew concerned when she didnt answer a text, found confused. Notes this AM, is feeling better. Awake, alert to person/place/time. Denies abd pain, nausea/vomiting/black/bloody stools. No fever, chills, CP, SOB. Decompensations: Varices: no Ascites: no SBP: no HRS: no HE: no HCC: no Screening: EGD: 02/2024- no varices Colonoscopy 12/2023- no polyps, diverticulosis Liver imaging: abdominal US 03/2024- no liver lesions seen EGD 01/31/25: Z-line regular, 39 cm from the incisors. - Normal esophagus. No esophageal varices. - Portal hypertensive gastropathy. No bleeding. No gastric varices. No GAVE. - Mild antral gastritis. - Normal duodenal bulb and second portion of the duodenum. - No specimens collected. Colonoscopy 01/31/25: Preparation of the colon was fair. - Diverticulosis in the sigmoid colon and in the d escending colon. - Internal hemorrhoids. - No specimens collected. Allergies Allergy/AdvReac Type Severity Reaction Status Date / Time diphenhydramine Allergy Intermediate Rash Verified 02/08/25 21:22 [From Benadryl] Sulfa (Sulfonamide Allergy Intermediate Rash Verified 02/08/25 21:22 Antibiotics) Home Medications Medication Instructions Recorded Confirmed Type allopurinol 100 mg tablet 100 mg PO DAILY 10/26/24 02/08/25 History bumetanide 1 mg tablet 1 mg PO 3XWK 10/26/24 02/08/25 History coenzyme Q10 10 mg capsule (Co 10 mg PO DAILY 10/26/24 02/08/25 History Q-10) garlic 1,000 mg capsule 1,000 mg PO DAILY 10/26/24 02/08/25 History levothyroxine 75 mcg tablet 75 mcg PO DAILYBB 10/26/24 02/08/25 History (Synthroid) omeprazole 20 mg capsule,delayed 20 mg PO DAILY 10/26/24 02/08/25 History release spironolactone 50 mg tablet 50 mg PO DAILY 10/26/24 02/08/25 History ferrous sulfate 325 mg (65 mg 325 mg PO DAILY 02/08/25 02/08/25 History iron) tablet (iron) magnesium oxide 300 mg PO DAILY 02/08/25 02/08/25 History peg 400-propylene glycol 0.4 %-0.3 1 drp ophthalmic (eye) HS PRN Dry 02/08/25 02/08/25 History % eye gel drops (GenTeal Tears Eyes Severe Gel Drops) vit C 250 mg-vit E 90 mg-zinc 40 1 tab PO BID 02/08/25 02/08/25 History mg-copper 1 pe-pehgja-ldaryo capsule (PreserVision AREDS-2) Patient History Medical History (Updated 02/09/25 @ 00:42 by Arnaldo Garland DO) Gout Chronic kidney disease GERD (gastroesophageal reflux disease) Cirrhosis Anemia Glaucoma Hypothyroidism Surgical History (Updated 10/26/24 @ 07:34 by Nola Foreman RN) Tubal ligation status History of breast biopsy Social History Smoking Status: Never smoker Second Hand Exposure: No; Do You Dip or Chew Tobacco: No; Hx Alcohol Use: No Hx Substance Use: No Preferred Language: Irish Communication Ability: Effective Materials Management Supervisor Required: No Beliefs That Will Affect Care: None Current Living Situation: Alone Feels Safe at Home: Yes Assistive Devices: None Review of Systems Review of Systems: All other findings negative except as noted in HPI. Physical Exam Constitutional: WD/WN, vitals as above Respiratory: normal respiratory effort, lungs clear to auscultation Cardiovascular: RRR, no murmur, no edema Gastrointestinal (Abdomen): normal bowel sounds, soft, nontender, no hepatosplenomegaly Skin: no rashes, warm and dry Results & Data Vital Signs (Past 12 Hours) Vital Signs Temp Pulse Pulse Resp BP BP Pulse Ox 02/09/25 07:43 84 18 151/72 H 95 02/09/25 04:32 98.1 F 89 19 96/59 L 95 02/09/25 03:32 98.1 F 90 19 146/65 H 95 02/09/25 03:02 97.9 F 91 H 20 140/71 95 02/09/25 02:47 98.1 F 93 H 20 132/69 95 02/09/25 02:45 98.1 F 93 H 20 132/69 95 02/09/25 02:30 98.8 F 93 H 18 140/68 99 02/09/25 02:29 94 H 18 99 02/09/25 02:15 84 18 138/87 99 02/09/25 01:27 94 H 18 140/68 98 02/09/25 01:27 02/09/25 01:12 98.2 F 96 H 16 147/69 H 98 02/09/25 00:42 98.2 F 94 H 18 138/62 98 02/09/25 00:27 98.2 F 94 H 18 137/68 100 02/09/25 00:23 97.9 F 94 H 18 138/64 96 02/09/25 00:09 98.1 F 98 H 18 142/68 H 96 02/08/25 23:00 94 H 23 143/62 H 96 02/08/25 22:00 98 H 22 152/67 H Pulse Ox O2 Del Method O2 Del Method 02/09/25 07:43 Room Air 02/09/25 04:32 02/09/25 03:32 02/09/25 03:02 02/09/25 02:47 02/09/25 02:45 02/09/25 02:30 02/09/25 02:29 Room Air 02/09/25 02:15 02/09/25 01:27 Room Air 02/09/25 01:27 97 Room Air 02/09/25 01:12 02/09/25 00:42 02/09/25 00:27 02/09/25 00:23 02/09/25 00:09 02/08/25 23:00 02/08/25 22:00 Laboratory Results 02/09/25 02/09/25 02/09/25 Range/Units 07:14 05:41 00:18 WBC 1.90 L (4.8-10.8) K/ul RBC 3.02 L (4.20-5.40) M/uL Hgb 9.1 L 9.7 L (12.0-16.0) g/dl Hct 28.2 L 30.4 L (37.0-47.0) % MCV 93.4 D (80.0-100.0) fL MCH 30.1 (25.0-34.0) pg MCHC 32.3 (32.0-36.0) g/dL RDW Std Deviation 65.1 H (36.4-46.3) fL RDW Coeff of Carly 19.9 H (11.5-14.5) % Plt Count 67 L (130-400) K/uL MPV 9.5 (9.4-12.4) fL Immature Gran % (Auto) 0.5 % Neut % (Auto) 53.1 % Lymph % (Auto) 26.3 % [place] % (Auto) 15.3 % Eos % (Auto) 3.7 % Baso % (Auto) 1.1 % Neut # (Auto) 1.01 L (1.40-6.50) K/uL Lymph # (Auto) 0.50 L (1.20-3.40) K/uL [place] # (Auto) 0.29 (0.11-0.59) K/uL Eos # (Auto) 0.07 (0.00-0.50) K/uL Baso # (Auto) 0.02 (0.00-0.20) K/uL Immature Gran # (Auto) 0.01 (0.01-0.20) K/uL Polychromasia Anisocytosis PT (9.0-12.0) Seconds INR (0.9-1.1) APTT (21-31) Seconds PTT Ratio Sodium 143 (136-145) mmol/L Potassium 3.7 (3.5-5.1) mmol/L Chloride 114 H (98-107) mmol/L Carbon Dioxide 21 (21-32) mmol/L Anion Gap 8 (3-11) BUN 38 H (6-23) mg/dl Creatinine 1.64 H (0.6-1.2) mg/dl Est Cr Clr Drug Dosing 24.6 ml/min eGFR 32.05 BUN/Creatinine Ratio 23.2 H (10-20) Glucose 131 H (70-99(Fasting)) mg/dl POC Glucose (70-99) mg/dl Calcium 9.1 (8.6-10.3) mg/dl Magnesium 1.7 (1.7-2.4) mg/dl Total Bilirubin (0.2-1.0) mg/dl AST (13-39) U/L ALT (7-52) U/L Alkaline Phosphatase (34-104) U/L Ammonia 79.0 H 91.0 H (18-72) umol/L Troponin I High Sens (0-14) pg/ml Total Protein (6.0-8.3) gm/dl Albumin (3.4-5.0) gm/dl Globulin (2.5-4.0) gm/dl Albumin/Globulin Ratio (0.9-2) TSH (0.300-4.500) uIu/ml Urine Color Urine Appearance (Clear) Urine pH (4.5-7.5) Ur Specific [place] (1.000-1.030) Urine Protein (Negative) Urine Glucose (UA) (Negative) Urine Ketones (Negative) Urine Blood (Negative) Urine Nitrite (Negative) Urine Bilirubin (Negative) Urine Urobilinogen (Negative) Ur Leukocyte Esterase (Negative) Urine WBC (Auto) (0-5) /hpf Urine RBC (Auto) (0-2) /hpf U Hyaline Cast (Auto) (0-2) /lpf U Epithel Cells (Auto) (0-2) /hpf Urine Bacteria (Auto) (None Seen) Urine Comment Ethyl Alcohol mg/dL (<10.0) mg/dl Crossmatch 02/08/25 02/08/25 02/08/25 Range/Units 23:23 20:55 20:51 WBC (4.8-10.8) K/ul RBC (4.20-5.40) M/uL Hgb (12.0-16.0) g/dl Hct (37.0-47.0) % MCV (80.0-100.0) fL MCH (25.0-34.0) pg MCHC (32.0-36.0) g/dL RDW Std Deviation (36.4-46.3) fL RDW Coeff of Carly (11.5-14.5) % Plt Count (130-400) K/uL MPV (9.4-12.4) fL Immature Gran % (Auto) % Neut % (Auto) % Lymph % (Auto) % [place] % (Auto) % Eos % (Auto) % Baso % (Auto) % Neut # (Auto) (1.40-6.50) K/uL Lymph # (Auto) (1.20-3.40) K/uL [place] # (Auto) (0.11-0.59) K/uL Eos # (Auto) (0.00-0.50) K/uL Baso # (Auto) (0.00-0.20) K/uL Immature Gran # (Auto) (0.01-0.20) K/uL Polychromasia Anisocytosis PT (9.0-12.0) Seconds INR (0.9-1.1) APTT (21-31) Seconds PTT Ratio Sodium (136-145) mmol/L Potassium (3.5-5.1) mmol/L Chloride (98-107) mmol/L Carbon Dioxide (21-32) mmol/L Anion Gap (3-11) BUN (6-23) mg/dl Creatinine (0.6-1.2) mg/dl Est Cr Clr Drug Dosing ml/min eGFR BUN/Creatinine Ratio (10-20) Glucose (70-99(Fasting)) mg/dl POC Glucose 193 H (70-99) mg/dl Calcium (8.6-10.3) mg/dl Magnesium (1.7-2.4) mg/dl Total Bilirubin (0.2-1.0) mg/dl AST (13-39) U/L ALT (7-52) U/L Alkaline Phosphatase (34-104) U/L Ammonia (18-72) umol/L Troponin I High Sens (0-14) pg/ml Total Protein (6.0-8.3) gm/dl Albumin (3.4-5.0) gm/dl Globulin (2.5-4.0) gm/dl Albumin/Globulin Ratio (0.9-2) TSH (0.300-4.500) uIu/ml Urine Color Yellow Urine Appearance Clear (Clear) Urine pH 6.5 (4.5-7.5) Ur Specific [place] 1.007 (1.000-1.030) Urine Protein Negative (Negative) Urine Glucose (UA) Negative (Negative) Urine Ketones Negative (Negative) Urine Blood Negative (Negative) Urine Nitrite Negative (Negative) Urine Bilirubin Negative (Negative) Urine Urobilinogen Negative (Negative) Ur Leukocyte Esterase Trace H (Negative) Urine WBC (Auto) 0-5 (0-5) /hpf Urine RBC (Auto) 0-2 (0-2) /hpf U Hyaline Cast (Auto) 0-2 (0-2) /lpf U Epithel Cells (Auto) 0-2 (0-2) /hpf Urine Bacteria (Auto) None Seen (None Seen) Urine Comment Ethyl Alcohol mg/dL < 10.0 (<10.0) mg/dl Crossmatch 02/08/25 02/07/25 Range/Units 19:49 16:32 WBC 2.27 L (4.8-10.8) K/ul RBC 2.44 L (4.20-5.40) M/uL Hgb 7.4 L (12.0-16.0) g/dl Hct 24.1 L (37.0-47.0) % MCV 98.8 (80.0-100.0) fL MCH 30.3 (25.0-34.0) pg MCHC 30.7 L (32.0-36.0) g/dL RDW Std Deviation 73.8 H (36.4-46.3) fL RDW Coeff of Carly 20.9 H (11.5-14.5) % Plt Count 91 L (130-400) K/uL MPV 10.2 (9.4-12.4) fL Immature Gran % (Auto) 0.4 % Neut % (Auto) 59.5 % Lymph % (Auto) 25.6 % [place] % (Auto) 11.0 % Eos % (Auto) 2.6 % Baso % (Auto) 0.9 % Neut # (Auto) 1.35 L (1.40-6.50) K/uL Lymph # (Auto) 0.58 L (1.20-3.40) K/uL [place] # (Auto) 0.25 (0.11-0.59) K/uL Eos # (Auto) 0.06 (0.00-0.50) K/uL Baso # (Auto) 0.02 (0.00-0.20) K/uL Immature Gran # (Auto) 0.01 (0.01-0.20) K/uL Polychromasia 1+ Anisocytosis Present PT 12.4 H (9.0-12.0) Seconds INR 1.2 H (0.9-1.1) APTT 25 (21-31) Seconds PTT Ratio 0.9 Sodium 140 (136-145) mmol/L Potassium 4.0 (3.5-5.1) mmol/L Chloride 108 H (98-107) mmol/L Carbon Dioxide 20 L (21-32) mmol/L Anion Gap 12 H (3-11) BUN 43 H (6-23) mg/dl Creatinine 1.89 H (0.6-1.2) mg/dl Est Cr Clr Drug Dosing 21.3 ml/min eGFR 27.03 BUN/Creatinine Ratio 22.8 H (10-20) Glucose 236 H (70-99(Fasting)) mg/dl POC Glucose (70-99) mg/dl Calcium 9.4 (8.6-10.3) mg/dl Magnesium 1.8 (1.7-2.4) mg/dl Total Bilirubin 1.3 H (0.2-1.0) mg/dl AST 40 H (13-39) U/L ALT 26 (7-52) U/L Alkaline Phosphatase 90 (34-104) U/L Ammonia (18-72) umol/L Troponin I High Sens 12.0 (0-14) pg/ml Total Protein 5.2 L (6.0-8.3) gm/dl Albumin 3.2 L (3.4-5.0) gm/dl Globulin 2.0 L (2.5-4.0) gm/dl Albumin/Globulin Ratio 1.6 (0.9-2) TSH 5.294 H (0.300-4.500) uIu/ml Urine Color Urine Appearance (Clear) Urine pH (4.5-7.5) Ur Specific [place] (1.000-1.030) Urine Protein (Negative) Urine Glucose (UA) (Negative) Urine Ketones (Negative) Urine Blood (Negative) Urine Nitrite (Negative) Urine Bilirubin (Negative) Urine Urobilinogen (Negative) Ur Leukocyte Esterase (Negative) Urine WBC (Auto) (0-5) /hpf Urine RBC (Auto) (0-2) /hpf U Hyaline Cast (Auto) (0-2) /lpf U Epithel Cells (Auto) (0-2) /hpf Urine Bacteria (Auto) (None Seen) Urine Comment Ethyl Alcohol mg/dL (<10.0) mg/dl Crossmatch See Detail PG Care Time/CCT Total # of Minutes Spent Total Time Spent with Patient: Total time spent is greater than 50% in coordination of care (as documented) at patient's floor/unit and/or counseling patient: Coding Level of Care Code 58488 INT INP/OBS CARE MIN Diagnoses Confusion R41.0
[2025-02-09] MEDS: SPIRONOLACTONE 25 MG TAB PO SCH (09:58)
[2025-02-09] MEDS: CEROVITE ADV FORMULA TAB PO SCH (09:58)
[2025-02-09] MEDS: MAGNESIUM OXIDE 400 MG TAB PO SCH (09:58)
[2025-02-09] MEDS: LACTULOSE SYRUP 20 GM/30 ML UDC PO SCH (10:00)
[2025-02-09] MEDS: LACTATED RINGER'S 1,000 ML IV SCH (10:08)
--- NOTE | 2025-02-09 17:46 | Communication Note ---
Patient seen and examined at bedside. Daughter present. Patient doing much better in ED. States she does not remember much from yesterday, was very confused. Per daughter patient close to baseline now. No other symptoms. On exam, no jaundice or asterixis noted, alert and orriented x3 and doing well. Ammonia level high, lymphopenia noted with tachycardia concern for SIRS criteria, creatinine downtrending. Presentation suggestive of hepatic encephalopathy 2/2 hemochromatosis vs. less likely sepsis from left lower lobe CAP. Ordered cultures, start ceftiraxone/azithromycin for potential CAP, given gentle fluids. Appreciate GI input, agree with lactulose and ascites survey. Date of Service: February 09, 2025
[2025-02-09] MEDS: cefTRIAXone SODIUM 2,000 MG/50 ML BAG IV SCH (19:03)
[2025-02-09] MEDS: AZITHROMYCIN 250 MG TAB PO SCH (19:33)
[2025-02-10 06:05] LABS: Hematocrit (blood only) 26.0 % (37.0-47.0); Hemoglobin 8.3 g/dl (12.0-16.0); Mean Corpuscular Hemoglobin 30.4 pg (25.0-34.0); Mean Corpuscular Volume 95.2 fL (80.0-100.0); Platelet Count 66 K/uL (130-400); RDW Standard Deviation 67.8 fL (36.4-46.3); Red Blood Count 2.73 M/uL (4.20-5.40); White Blood Count 2.13 K/ul (4.8-10.8)
--- NOTE | 2025-02-10 06:09 | Electrocardiogram Report ---
Test Reason : Blood Pressure : */* mmHG Vent. Rate : 99 BPM Atrial Rate : 99 BPM P-R Int : 158 ms QRS Dur : 70 ms QT Int : 334 ms P-R-T Axes : 69 13 86 degrees QTcB Int : 428 ms Normal sinus rhythm Cannot rule out Anterior infarct , age undetermined Nonspecific ST abnormality Abnormal ECG No previous ECGs available Confirmed by Jonas Burnett ([id number]) on 02/10/2025 6:08:36 AM Referred By: Matthew Smith Confirmed By: Jonas Burnett
[2025-02-10 06:25] LABS: Alanine Aminotransferase 28.0 U/L (7-52); Albumin Globulin Ratio 1.8 (0.9-2); Alkaline Phosphatase 81.0 U/L (34-104); Anion Gap 8.0 (3-11); Bilirubin,Total 1.3 mg/dl (0.2-1.0); Blood Urea Nitrogen 34.0 mg/dl (6-23); Calcium 8.8 mg/dl (8.6-10.3); Carbon Dioxide 20.0 mmol/L (21-32); Chloride 115.0 mmol/L (98-107); Creatinine Clr Calc Pharmacy 23.5 ml/min; Globulin 1.6 gm/dl (2.5-4.0); Glucose 107.0 mg/dl (70-99(Fasting)); Potassium 3.6 mmol/L (3.5-5.1); Sodium 143.0 mmol/L (136-145); Total Protein 4.5 gm/dl (6.0-8.3)
--- NOTE | 2025-02-10 11:02 | Gastroenterology Progress Note ---
Date of Service February 10, 2025 Assessment & Plan (1) Confusion: (2) Anemia: (3) Cirrhosis: (4) Cirrhosis due to hemochromatosis: (5) Hepatic encephalopathy: Plan 75 year old female with multiple comorbidities including hereditary hemochromatosis with cirrhosis, previous phlebotomy, portal hypertension (splenomegaly, thrombocytopenia), reflux, duodenal ulcer, chronic kidney stage III presenting with change in mental status, noted to have elevated ammonia likely encephalopathic. 1. Change in mental status, hyperammonemia --Patient clinically improved with lactulose therapy --Continue lactulose titrated to 2-3 bowel movements daily. If unable to tolerate then consider adding or replacing with Xifaxan 550 mg p.o. twice daily --No clear evidence of active infection --Potential slow GI bleeding could contribute to hepatic encephalopathy -- CT head shows small vessel disease consistent with normal aging. No masses are appreciated. --No asterixis elicited on today's exam. 2. Cirrhosis --Patent with relatively well compensated liver disease with a MELD score of 14 --Close follow-up for hepatocellular carcinoma including abdominal imaging twice yearly along with annual alpha-fetoprotein testing --Upper endoscopy for variceal screening annually. The patient is status post EGD and colonoscopy with her regular production support analyst as part of iron deficiency anemia workup. - Low NA diet, less than 2G daily - Less than 2G acetaminophen containing products daily 3. SHAR - Patient is status post endoluminal evaluation with EGD and colonoscopy without clear etiology. Given patient's history of cirrhosis, she is at increased risk for small bowel angiectasia with slow indolent bleeding. Capsule endoscopy is recommended (outpatient). --Nuclear bleeding scan is not surprisingly unremarkable - Continue with recommendations per OP [facility]/Hepatology GI - Agree w/ hematology evaluation Admission and Anticipated Discharge Date Admission Date: February 09, 2025 Subjective The patient was again seen in the ER. She notes being much more lucid when compared to previous. She is anxious to go home. She does not have any symptoms at this time including abdominal pain, nausea, vomiting. She has not seen any evidence of bleeding. Review of Systems Review of Systems: All systems reviewed & are unremarkable except as noted in HPI & below Physical Exam Constitutional: WD/WN, vitals as above Respiratory: normal respiratory effort, lungs clear to auscultation Cardiovascular: RRR, no murmur, no edema Gastrointestinal (Abdomen): normal bowel sounds, soft, nontender, no hepatosplenomegaly Results & Data Results & Data Vital Signs (Past 12 Hours) Vital Signs Pulse Pulse Resp BP Pulse Ox Pulse Ox O2 Del Method 02/10/25 10:00 86 16 141/59 H 98 Room Air 02/10/25 07:11 89 02/10/25 07:00 100 H 16 129/62 97 Room Air 02/10/25 01:27 97 02/09/25 23:10 97 H O2 Del Method 02/10/25 10:00 02/10/25 07:11 02/10/25 07:00 02/10/25 01:27 Room Air 02/09/25 23:10 PG Care Time/CCT Total # of Minutes Spent Total Time Spent with Patient: Total time spent is greater than 50% in coordination of care (as documented) at patient's floor/unit and/or counseling patient: Coding Level of Care Code 51473 SUB INP/OBS CARE 2/35MIN Diagnoses Confusion R41.0 Anemia D64.9 Anemia type: unspecified type Cirrhosis of liver with ascites, unspecified hepatic cirrhosis type K74.60; R18.8 Hepatic cirrhosis type: unspecified hepatic cirrhosis Ascites presence: with ascites Cirrhosis due to hemochromatosis K74.60; E83.119 Hepatic encephalopathy K76.82 (2) Anemia Anemia type: unspecified type Qualified Code(s): D64.9 - Anemia, unspecified (3) Cirrhosis Hepatic cirrhosis type: unspecified hepatic cirrhosis Ascites presence: with ascites Qualified Code(s): K74.60 - Unspecified cirrhosis of liver; R18.8 - Other ascites
--- NOTE | 2025-02-10 14:21 | Discharge Summary ---
Discharge Summary Date of Service February 10, 2025 Principal Dx & Hospital Course #1 = Principal Diagnosis (1) Confusion: 75-year-old female with past medical history significant for hereditary hemochromatosis, hyperlipidemia,hypothyroidism, idiopathic esophageal varices with bleeding, hypertension, cirrhosis of liver with ascites, acute duodenal ulcer, GERD, TONNY, CKD stage III, muscle cramps, generalized osteoarthritis, pancytopenia, symptomatic anemia, fibrocystic disease of breast who lives alone at home was brought in by [id number] because of confusion. As per daughter in law the patient was not answering text and when they went to check on her she seemed confused. Somewhat off balance. Generally ambulates without support. Could not remember the dates. Currently seems to be better as per [id number]. Currently patient able to tell her name. Knows that she is in the hospital. Could tell her date of . Could tell current month and date. Somewhat slow to answer. Denies any headache. Denies neck pain. Denies chest pain. Denies abdominal pain. Denies any pain in the legs. No cough. No feeling hot or cold. No nausea. No diarrhea or constipation. Micturating okay. Hemodynamics are okay. Patient was recently at [facility] and was discharged on 02/02/2025. She was admitted there for symptomatic anemia and workup was mostly unremarkable. She received 2 units of PRBC.. S/p EGD/colonoscopy and no bleeding was found. Bleeding scan was okay. GI planned for outpatient capsule endoscopy. Infection workup was negative for EBV, hepatitis B Anaplasma and Lyme. Advised not to take garlic supplement. She also had bone marrow biopsy and as per heme-onc notes on epic most likely she may have myelodysplasia syndrome and also possible ongoing GI blood loss causing acute on chronic anemia and also renal insufficiency contributing to anemia. As per [id number] the bone marrow biopsy results were not yet discussed with heme-onc. Heme-onc is planning to fax bone marrow report to Dr. Joao Calixto in [facility] and then to discuss about the results.As per [id number] her brought the patient to the hospital for type and crossmatch yesterday and she seemed okay at that time. And there was plan for blood transfusion in a.m. Patient for about last six weeks getting weekly blood transfusions. Hepatic encephalopathy Confusion UA is negative CT head unremarkable Will follow ammonia levels- cmae back elevated at 91 ordered lactulose Gi consult close monitor Pancytopenia Acute on chronic anemia Iron deficiency anemia Liver cirrhosis History of hematochromatosis Recent EGD and colonoscopy were unremarkable. There was a plan for capsule endoscopy. Recent Bleeding scan was okay. Bone marrow biopsy results Dr. Smith wants to discuss with [facility]. Follow-up with heme-onc Last 6 weeks patient getting weekly blood transfusions. There is a plan to get PRBC tomorrow. ER ordered 2 units of PRBC which will be given Will follow the labs Hypothyroidism On Synthyroid TSH 5.2 Follow-up with PCP GERD On omeprazole Liver cirrhosis Lower extremity edema Continue home Bumex and spironolactone Follow Dopplers Gout On allopurinol CKD stage III Presents creatinine 1.8 which seems to be around baseline We will follow labs DVT prophylaxis SCDs for now Monitor platelets Disposition Med/telemetry Full code Notes For Next Care Provider 75-year-old female with past medical history significant for hereditary hemochromatosis, hyperlipidemia,hypothyroidism, idiopathic esophageal varices with bleeding, hypertension, cirrhosis of liver with ascites, acute duodenal ulcer, GERD, TONNY, CKD stage III, muscle cramps, generalized osteoarthritis, pancytopenia, symptomatic anemia, fibrocystic disease of breast who lives alone at home was brought in by [id number] because of confusion. Admitted to medicine for confusion. On medicine, GI consulted, recommended starting lactulose for hepatic encephalopathy. Given abx of potential LLL CAP. Significant improvement in mental status. on 02/10/2025 patient medically stable for discharge home. To do: [ ] f/u with GI [ ] can consider adding rifaxamin Medication Changes From Visit -lactulose and abx Admission HPI Per Admitting Provider 75-year-old female with past medical history significant for hereditary hemochromatosis, hyperlipidemia,hypothyroidism, idiopathic esophageal varices with bleeding, hypertension, cirrhosis of liver with ascites, acute duodenal ulcer, GERD, TONNY, CKD stage III, muscle cramps, generalized osteoarthritis, pancytopenia, symptomatic anemia, fibrocystic disease of breast who lives alone at home was brought in by [id number] because of confusion. As per daughter in law the patient was not answering text and when they went to check on her she seemed confused. Somewhat off balance. Generally ambulates without support. Could not remember the dates. Currently seems to be better as per [id number]. Currently patient able to tell her name. Knows that she is in the hospital. Could tell her date of . Could tell current month and date. Somewhat slow to answer. Denies any headache. Denies neck pain. Denies chest pain. Denies abdominal pain. Denies any pain in the legs. No cough. No feeling hot or cold. No nausea. No diarrhea or constipation. Micturating okay. Hemodynamics are okay. Patient was recently at [facility] and was discharged on 02/02/2025. She was admitted there for symptomatic anemia and workup was mostly unremarkable. She received 2 units of PRBC.. S/p EGD/colonoscopy and no bleeding was found. Bleeding scan was okay. GI planned for outpatient capsule endoscopy. Infection workup was negative for EBV, hepatitis B Anaplasma and Lyme. Advised not to take garlic supplement. She also had bone marrow biopsy and as per heme-onc notes on epic most likely she may have myelodysplasia syndrome and also possible ongoing GI blood loss causing acute on chronic anemia and also renal insufficiency contributing to anemia. As per [id number] the bone marrow biopsy results were not yet discussed with heme-onc. Heme-onc is planning to fax bone marrow report to Dr. Joao Calixto in [facility] and then to discuss about the results.As per [id number]-sk-gud her brought the patient to the hospital for type and crossmatch yesterday and she seemed okay at that time. And there was plan for blood transfusion in a.m. Patient for about last six weeks getting weekly blood transfusions. Past medical history. As mentioned above. Past surgical history. Colonoscopy or EGD. Social history. . No smoking. No alcohol use. No drug use. Family history. No family history on file Discharge Exam Gen: A&O 3 NAD HEENT: NCAT, EOMI, not icteric. External ears normal. No rhinorrhea. Moist mucous membranes. Neck: Supple, full range of motion, no observable masses, No meningeal sign. Lungs: No Respiratory distress. CV: RRR, no edema. Abdomen: Soft, nondistended, No rebound tenderness. MSK: No joint swelling, no redness. Skin: No rashes, petechiae, lesions. Normal color per patient. Neuro: Normal Gait, Grossly intact. Psych: Appropriate for situation. Updated Medication List Medication Instructions Recorded Confirmed Type allopurinol 100 mg tablet 100 mg PO DAILY 10/26/24 02/08/25 History bumetanide 1 mg tablet 1 mg PO 3XWK 10/26/24 02/08/25 History levothyroxine 75 mcg tablet 75 mcg PO DAILYBB 10/26/24 02/08/25 History (Synthroid) omeprazole 20 mg capsule,delayed 20 mg PO DAILY 10/26/24 02/08/25 History release spironolactone 50 mg tablet 50 mg PO DAILY 10/26/24 02/08/25 History magnesium oxide 300 mg PO DAILY 02/08/25 02/08/25 History peg 400-propylene glycol 0.4 %-0.3 1 drp ophthalmic (eye) HS PRN Dry 02/08/25 02/08/25 History % eye gel drops (GenTeal Tears Eyes Severe Gel Drops) vit C 250 mg-vit E 90 mg-zinc 40 1 tab PO BID 02/08/25 02/08/25 History mg-copper 1 [id number]-jqyqgd-iwmrew capsule (PreserVision AREDS-2) amoxicillin 500 mg-potassium 1 tab PO BID 5 days #10 tabs 02/10/25 Rx clavulanate 125 mg tablet (Augmentin) azithromycin 250 mg tablet 500 mg (2 x 250 mg) PO QAM 5 days 02/10/25 Rx #10 tabs lactulose 10 gram/15 mL oral 30 g (45 mL) PO TID #3,785 mL 02/10/25 Rx solution Hospital Stay Data Consultations 02/08/25 23:13 ED Decision to Admit Stat 02/09/25 08:00 Consult Gastroenterology Routine Diagnostic Imagining Performed 02/08/25 21:09 CT head/brain wo con Stat 02/09/25 01:27 US venous doppler LE BI Routine Pending Results Patient Have Any Pending Studies at Discharge: No Discharge Instructions Given to Patient (Per Discharging Provider) Diagnosis: hepatic encephalopathy, hereditary hemochromatosis, possible CAP Follow Ups: PCP, GI 1. Follow up with PCP and GI. 2. Stay hydrated! 3. If starting to get confused, take additional dose of lactulose. Aim for at least 1-3 bowel movements per day. Total Time Total Time Spent Total Time Spent (In Minutes): I spent a total of 35 minutes in direct patient care, including ucmv-iv-[id number] time with the patient and/or family, reviewing medical records, ordering and reviewing diagnostic tests, and coordinating care with other healthcare providers. This time includes: history taking, physical examination, medical decision making, counseling, ECG interpretation, imaging interpretation, lab interpretation, orders, and education, excluding time spent in the performance of separately billed services.
== END 2025-02-10 13:31 | disposition home or self-care (01) ==
LOC: ED 19:31 → EDINP 02-09 00:22 → INTOOBSV 02-09 00:22 → EDINP 02-10 01:28

== ENCOUNTER 2025-02-26 14:41 | Inpatient (IN) ==
[2025-02-26 16:07] LABS: Hematocrit (blood only) 21.5 % (37.0-47.0); Hemoglobin 6.8 g/dl (12.0-16.0); Mean Corpuscular Hemoglobin 29.8 pg (25.0-34.0); Mean Corpuscular Volume 94.3 fL (80.0-100.0); Platelet Count 89 K/uL (130-400); RDW Standard Deviation 62.3 fL (36.4-46.3); Red Blood Count 2.28 M/uL (4.20-5.40); White Blood Count 2.17 K/ul (4.8-10.8)
[2025-02-26 16:29] LABS: Alanine Aminotransferase 30.0 U/L (7-52); Albumin Globulin Ratio 1.6 (0.9-2); Alkaline Phosphatase 93.0 U/L (34-104); Anion Gap 7.0 (3-11); Bilirubin,Total 1.1 mg/dl (0.2-1.0); Blood Urea Nitrogen 48.0 mg/dl (6-23); Calcium 8.9 mg/dl (8.6-10.3); Carbon Dioxide 20.0 mmol/L (21-32); Chloride 109.0 mmol/L (98-107); Creatinine Clr Calc Pharmacy 23.2 ml/min; Globulin 1.9 gm/dl (2.5-4.0); Glucose 136.0 mg/dl (70-99(Fasting)); Potassium 4.2 mmol/L (3.5-5.1); Sodium 136.0 mmol/L (136-145); Total Protein 5.0 gm/dl (6.0-8.3)
[2025-02-26 16:31] LABS: INR 1.1 (0.9-1.1); Partial Thromboplastin Time 25 Seconds (21-31); Prothrombin Time 12.1 Seconds (9.0-12.0)
[2025-02-26] MEDS ORDERED: SODIUM CHLORIDE 0.9% 100 ML IV PRN (16:46)
--- NOTE | 2025-02-26 16:59 | Emergency Department Note ---
History of Present Illness General Chief complaint: Rectal Bleed Stated complaint: REF BY DOC, LOSING BLOOD Time Seen by Provider: 02/26/25 16:08 History of Present Illness Provider Complaint: + melena Onset (ago): 1 week(s) Pain Consistency: + constant Relieved By: + none Exacerbated By: + none Context: + history of GI bleed; no anticoagulant use Associated symptoms: no abdominal pain, no nausea, no vomiting, no epistaxis, no fever, no chills or no headaches Home Medications Medication Instructions Recorded Confirmed Type allopurinol 100 mg tablet 100 mg PO DAILY 10/26/24 02/23/25 History bumetanide 1 mg tablet 1 mg PO 3XWK 10/26/24 02/23/25 History levothyroxine 75 mcg tablet 75 mcg PO DAILYBB 10/26/24 02/23/25 History (Synthroid) omeprazole 20 mg capsule,delayed 20 mg PO DAILY 10/26/24 02/23/25 History release spironolactone 50 mg tablet 50 mg PO DAILY 10/26/24 02/23/25 History magnesium oxide 300 mg PO DAILY 02/08/25 02/23/25 History peg 400-propylene glycol 0.4 %-0.3 1 drp ophthalmic (eye) HS PRN Dry 02/08/25 02/23/25 History % eye gel drops (GenTeal Tears Eyes Severe Gel Drops) vit C 250 mg-vit E 90 mg-zinc 40 1 tab PO BID 02/08/25 02/23/25 History mg-copper 1 [id number]-cmycql-jwmjdy capsule (PreserVision AREDS-2) Allergies Allergy/AdvReac Type Severity Reaction Status Date / Time diphenhydramine Allergy Intermediate Rash Verified 02/23/25 13:02 [From Benadryl] furosemide [From Lasix] Allergy Intermediate Rash Verified 02/23/25 15:26 Sulfa (Sulfonamide Allergy Intermediate Rash Verified 02/23/25 13:02 Antibiotics) Past Med/Surg History Problem List (Updated 02/26/25 @ 17:05 by Juan Mora MD) GI bleed (Acute) Hepatic encephalopathy Cirrhosis due to hemochromatosis Anemia (Acute) Confusion Medical History Gout Chronic kidney disease GERD (gastroesophageal reflux disease) Cirrhosis Anemia Glaucoma Hypothyroidism Surgical History Tubal ligation status History of breast biopsy Social History Smoking Status: Never smoker Second Hand Exposure: No; Do You Dip or Chew Tobacco: No; Hx Alcohol Use: No Hx Substance Use: No Preferred Language: Senegalese Communication Ability: Effective Audograph Operator Required: No Beliefs That Will Affect Care: None Current Living Situation: Alone Feels Safe at Home: Yes Assistive Devices: None Physical Exam 2 Vital Signs: Vital Signs - 24 hr 02/26/25 14:47 Temperature 36.9 C Temperature Source Temporal Artery Sc an Pulse Rate 105 H Respiratory Rate 18 Respiratory Effort / Characteristics Non-Labored Sponta neous Respiratory Depth Normal Respiratory Patter n Regular Blood Pressure 148/57 H Blood Pressure Ml n 87 Pulse Oximetry 99 Oxygen Delivery Me thod Room Air Sepsis Recent Feve r Within 48 Hours No Sepsis New/Unexpla ined Change in Men roxanna Status N/A Sepsis Action Take n by Nursing No Action Required Physical Exam: Physical Exam GENERAL: oriented to person, place, and time. appears well-developed and well- nourished. HENT: Exam performed. - Head: Normocephalic and atraumatic. EYES: Conjunctivae and EOM are normal. Right eye exhibits no discharge. Left eye exhibits no discharge. No scleral icterus. NECK: Normal range of motion. Neck supple. No JVD present. CV: Normal rate, regular rhythm, normal heart sounds and intact distal pulses. There is no peripheral edema. Palpable radial pulses bue. PULM/CHEST: Effort normal and breath sounds normal. No respiratory distress. No stridor. no wheezes. no rales. ABD: The abdomen is soft. There is no tenderness. Rectal: Performed with female supervisor inspection room Luz. Melanotic stool that is Hemoccult positive NEURO: Motor and sensation grossly intact. SKIN: Skin is warm and dry. He is not diaphoretic. PSYCH: normal mood and affect. Behavior is normal. Judgment and thought content normal. Course Course 1608: The patient was evaluated in room A9B. A complete history and physical exam was performed Medical Decision Making Laboratory Data Attestation: I reviewed the patient's lab results. 02/26/25 15:50 02/26/25 15:50 Lab Results 02/26/25 02/26/25 Range/Units 15:50 16:54 WBC 2.17 L (4.8-10.8) K/ul RBC 2.28 L (4.20-5.40) M/uL Hgb 6.8 L* (12.0-16.0) g/dl Hct 21.5 L (37.0-47.0) % MCV 94.3 (80.0-100.0) fL MCH 29.8 (25.0-34.0) pg MCHC 31.6 L (32.0-36.0) g/dL RDW Std Deviation 62.3 H (36.4-46.3) fL RDW Coeff of Carly 18.5 H (11.5-14.5) % Plt Count 89 L (130-400) K/uL MPV 10.1 (9.4-12.4) fL PT 12.1 H (9.0-12.0) Seconds INR 1.1 (0.9-1.1) APTT 25 (21-31) Seconds PTT Ratio 0.9 Sodium 136 (136-145) mmol/L Potassium 4.2 (3.5-5.1) mmol/L Chloride 109 H (98-107) mmol/L Carbon Dioxide 20 L (21-32) mmol/L Anion Gap 7 (3-11) BUN 48 H (6-23) mg/dl Creatinine 1.74 H (0.6-1.2) mg/dl Est Cr Clr Drug Dosing 23.2 ml/min eGFR 29.85 BUN/Creatinine Ratio 27.6 H (10-20) Glucose 136 H (70-99(Fasting)) mg/dl Calcium 8.9 (8.6-10.3) mg/dl Total Bilirubin 1.1 H (0.2-1.0) mg/dl AST 53 H (13-39) U/L ALT 30 (7-52) U/L Alkaline Phosphatase 93 (34-104) U/L Troponin I High Sens 12.1 (0-14) pg/ml Total Protein 5.0 L (6.0-8.3) gm/dl Albumin 3.1 L (3.4-5.0) gm/dl Globulin 1.9 L (2.5-4.0) gm/dl Albumin/Globulin Ratio 1.6 (0.9-2) POC Stool Occult Blood Positive A (Negative) MDM Narrative Cardiac monitoring: An order was placed for continuous cardiac monitoring. The monitor shows a rate of 100 with sinus rhythm interpreted by me Patient was seen during a time of extreme volume and extreme acuity in the emergency department. Nursing triage protocols were initiated and labs were drawn by protocol in the triage area. Labs show hemoglobin of 6.8. Patient will be transfused blood started on Protonix bolus and drip and will be admitted to the [facility] team. Impression & Plan GI bleed Critical Care Time Critical Care Time: Yes Total Critical Care Time: 40 Discharge Plan Visit Data Chief Complaint: Rectal Bleed Stated Complaint: REF BY DOC, LOSING BLOOD ED Provider: Juan Mora Discharge Problem: GI bleed Patient Disposition: Admitted As Inpatient Condition: Serious Forms Stand Alone Forms: [facility] Prescriptions Prescriptions: No Action allopurinol 100 mg Tablet 100 mg PO DAILY levothyroxine [Synthroid] 75 mcg Tablet 75 mcg PO DAILYBB omeprazole 20 mg Capsule,Delayed Release(Dr/Ec) 20 mg PO DAILY Rx Instructions: ORDERED 12/20/24 FOR 14 DAYS. bumetanide 1 mg Tablet 1 mg PO 3XWK Hold Instructions: Resume on 02/14/25. Rx Instructions: MON, WED, & WED. spironolactone 50 mg Tablet 50 mg PO DAILY Hold Instructions: Resume on 02/13/25. GenTeal Tears Severe Gel Drops 0.4-0.3 % Drops,Gel 1 drp OPHTHALMIC (EYE) HS PRN (Reason: Dry Eyes) PreserVision AREDS-2 250-90-40-1 mg Capsule 1 tab PO BID magnesium oxide 300 mg magnesium Tablet 300 mg PO DAILY Referrals Referrals: Nichole Araujo MD [Primary Care Provider] - Discharge Problem: GI bleed Qualifiers: GI bleed type/associated pathology: melena Qualified Code(s): K92.1 - Melena
[2025-02-26] MEDS ORDERED: STAT IV/IM STA (17:38)
--- NOTE | 2025-02-26 17:38 | History & Physical Report ---
Date of Service February 26, 2025 Assessment & Plan (1) Anemia: (2) GI bleed: Plan: 75 yo F with hx of hereditary hemochromatosis, hyperlipidemia,hypothyroidism, idiopathic esophageal varices with bleeding, hypertension, cirrhosis of liver with ascites, acute duodenal ulcer, GERD, TONNY, CKD stage III, pancytopenia, symptomatic anemia who presents with dark stool and anemic, found to have Hgb 6.8 in ED. Pt was recently hospitalized here just about 2 weeks ago due to confusion which was believed to be secondary to hepatic encephalopathy. After her hospitalization she was feeling fairly well, she did have a blood transfusion on Wednesday (as she follows w/ Dr. Smith for anemia, pancytopenia, poss. MDS). Then over the weekend she had looser stool that were quite dark. Today she had a tele visit w/ GI/ hepatology Dr. Sauceda - and discussed her having dark stools and was advised to present to the ED for further work up. Recently pt was evaluated at [facility] for her anemia by GI, where she had upper endoscopy and colonoscopy done - no bleeding was found at that time. Plan was to do video capsule endoscopy as outpt. She just consented to this outpt study on 02/21. Anemia - acute on chronic Poss. GI bleed FOBT in ER positive Liver cirrhosis History of hematochromatosis Recent EGD and colonoscopy were unremarkable. Plan for capsule endoscopy as outpt. At that time pt did not have dark stools, but was anemic Pt sent by GI to ER for further work up - as last work up was more than 2 weeks ago Pt started on IV PPI in ED, will cont. Plan to transfuse 1 unit of pRBC in ER will start octreotide and ceftriaxone NPO after midnight GI consulted Pancytopenia, liver cirrhosis, poss. MDS hx of Iron deficiency anemia Bone marrow biopsy recently Follow-up with heme-oncDr. Smith Last blood transfusion was on Wednesday Will follow the labs Hypothyroidism On Synthyroid TSH 5.2 in 01/2025 Follow-up with PCP Gout On allopurinol CKD stage III Presents creatinine 1.7 which seems to be around baseline cont. to monitor DVT prophylaxis : SCDs for now, Monitor platelets Disposition : Med/telemetry Full code History of Present Illness Chief Complaint: Anemia/ GI bleed Primary Care Provider: Nichole Araujo MD 75 yo F with hx of hereditary hemochromatosis, hyperlipidemia,hypothyroidism, idiopathic esophageal varices with bleeding, hypertension, cirrhosis of liver with ascites, acute duodenal ulcer, GERD, TONNY, CKD stage III, pancytopenia, symptomatic anemia who presents with dark stool and anemic, found to have Hgb 6.8 in ED. Pt was recently hospitalized here just about 2 weeks ago due to confusion which was believed to be secondary to hepatic encephalopathy. After her hospitalization she was feeling fairly well, she did have a blood transfusion on Wednesday (as she follows w/ Dr. Smith for anemia, pancytopenia, poss. MDS). Then over the weekend she had looser stool that were quite dark. Today she had a tele visit w/ GI/ hepatology Dr. Sauceda - and discussed her having dark stools and was advised to present to the ED for further work up. Recently pt was evaluated at [facility] for her anemia by GI, where she had upper endoscopy and colonoscopy done - no bleeding was found at that time. Plan was to do video capsule endoscopy as outpt. She just consented to this outpt study on 02/21. Currently pt is lying in bed in NAD, she awake, alert, oriented and answering appropriately. Denies any abdominal pain. She also denies any fever, chills, chest pain, shortness of breath. No n/v. Allergies Allergy/AdvReac Type Severity Reaction Status Date / Time diphenhydramine Allergy Intermediate Rash Verified 02/23/25 13:02 [From Benadryl] furosemide [From Lasix] Allergy Intermediate Rash Verified 02/23/25 15:26 Sulfa (Sulfonamide Allergy Intermediate Rash Verified 02/23/25 13:02 Antibiotics) Home Medications Medication Instructions Recorded Confirmed Type allopurinol 100 mg tablet 100 mg PO DAILY 10/26/24 02/26/25 History bumetanide 1 mg tablet 1 mg PO 3XWK 10/26/24 02/26/25 History levothyroxine 75 mcg tablet 75 mcg PO DAILYBB 10/26/24 02/26/25 History (Synthroid) omeprazole 20 mg capsule,delayed 0 mg PO DAILY 10/26/24 02/26/25 History release spironolactone 50 mg tablet 50 mg PO DAILY 10/26/24 02/26/25 History magnesium oxide 300 mg PO DAILY 02/08/25 02/26/25 History peg 400-propylene glycol 0.4 %-0.3 1 drp ophthalmic (eye) HS PRN Dry 02/08/25 02/26/25 History % eye gel drops (GenTeal Tears Eyes Severe Gel Drops) vit C 250 mg-vit E 90 mg-zinc 40 1 tab PO BID 02/08/25 02/26/25 History mg-copper 1 [id number] capsule (PreserVision AREDS-2) Past Med/Surg History Problem List GI bleed (Acute) Hepatic encephalopathy Cirrhosis due to hemochromatosis Anemia (Acute) Confusion Medical History Gout Chronic kidney disease GERD (gastroesophageal reflux disease) Cirrhosis Anemia Glaucoma Hypothyroidism Surgical History Tubal ligation status History of breast biopsy Social History Smoking Status: Never smoker Second Hand Exposure: No; Do You Dip or Chew Tobacco: No; Hx Alcohol Use: No Hx Substance Use: No Preferred Language: Upper Sorbian Communication Ability: Effective Program Paraprofessional Required: No Beliefs That Will Affect Care: None Current Living Situation: Alone Feels Safe at Home: Yes Assistive Devices: None Review of Systems Review of Systems: All systems reviewed & are unremarkable except as noted in Subjective Physical Exam Constitutional: WD/WN, vitals as above Eyes: PERRL, conjunctivae normal, anicteric sclerae ENMT: external ear and nose normal, oropharynx normal Neck: normal visual inspection Respiratory: normal respiratory effort, lungs clear to auscultation Cardiovascular: Rate/Rhythm: regular rate Gastrointestinal (Abdomen): Inspection/Auscultation: abdomen normal to inspection Percussion/Palpation: abdomen soft; abdomen nontender Musculoskeletal: moves extremities Skin: no rashes, warm and dry Neurologic: PERRL, EOMI, accommodation nl, no face palsy, no dysarthria Psychiatric: A+Ox3, euthymic affect Results & Data Results & Data Vital Signs (Past 12 Hours) Vital Signs Temp Pulse Pulse Resp BP BP Pulse Ox 02/26/25 17:20 90 18 144/67 H 98 02/26/25 17:20 98 09/15/25 14:47 36.9 C 105 H 18 148/57 H 99 O2 Del Method 02/26/25 17:20 Room Air 02/26/25 17:20 Room Air 02/26/25 14:47 Room Air Laboratory Results 02/26/25 02/26/25 Range/Units 16:54 15:50 WBC 2.17 L (4.8-10.8) K/ul RBC 2.28 L (4.20-5.40) M/uL Hgb 6.8 L* (12.0-16.0) g/dl Hct 21.5 L (37.0-47.0) % MCV 94.3 (80.0-100.0) fL MCH 29.8 (25.0-34.0) pg MCHC 31.6 L (32.0-36.0) g/dL RDW Std Deviation 62.3 H (36.4-46.3) fL RDW Coeff of Carly 18.5 H (11.5-14.5) % Plt Count 89 L (130-400) K/uL MPV 10.1 (9.4-12.4) fL PT 12.1 H (9.0-12.0) Seconds INR 1.1 (0.9-1.1) APTT 25 (21-31) Seconds PTT Ratio 0.9 Sodium 136 (136-145) mmol/L Potassium 4.2 (3.5-5.1) mmol/L Chloride 109 H (98-107) mmol/L Carbon Dioxide 20 L (21-32) mmol/L Anion Gap 7 (3-11) BUN 48 H (6-23) mg/dl Creatinine 1.74 H (0.6-1.2) mg/dl Est Cr Clr Drug Dosing 23.2 ml/min eGFR 29.85 BUN/Creatinine Ratio 27.6 H (10-20) Glucose 136 H (70-99(Fasting)) mg/dl Calcium 8.9 (8.6-10.3) mg/dl Total Bilirubin 1.1 H (0.2-1.0) mg/dl AST 53 H (13-39) U/L ALT 30 (7-52) U/L Alkaline Phosphatase 93 (34-104) U/L Troponin I High Sens 12.1 (0-14) pg/ml Total Protein 5.0 L (6.0-8.3) gm/dl Albumin 3.1 L (3.4-5.0) gm/dl Globulin 1.9 L (2.5-4.0) gm/dl Albumin/Globulin Ratio 1.6 (0.9-2) POC Stool Occult Blood Positive A (Negative) Blood Type B Positive Antibody Screen POSITIVE A Antibody Identification Pending Antibody ID Comment Pending Crossmatch See Detail Medications Administered Current Inpatient Medications Sodium Chloride (Nss) 100 mls @ 15 mls/hr IV .[id number] PRN PRN Reason: For Transfusion Duration Stop: 02/27/25 00:46 Pantoprazole Sodium 40 mg/ (Dextrose) 100 mls @ 20 mls/hr IV Q5H YOLIS Stop: 03/28/25 17:14 Last Admin: 02/26/25 18:13 Dose: 8 mg/hr, 20 mls/hr Sodium Chloride (Nss) 1,000 mls @ 80 mls/hr IV .[id number] YOLIS Stop: 03/01/25 16:59 Last Admin: 02/26/25 18:36 Dose: 80 mls/hr Octreotide Acetate 500 mcg/ (Sodium Chloride) 100.5 mls @ 10.05 mls/hr IV .Q10H YOLIS Stop: 03/28/25 17:44 Ceftriaxone Sodium (Rocephin) 1,000 mg in 50 mls @ 100 mls/hr IV Q24H YOLIS Stop: 03/01/25 17:44 Levothyroxine Sodium (Levothyroxine Sodium 75 Mcg Tablet) 75 mcg PO DAILYBB YOLIS Stop: 03/29/25 06:29 (1) Anemia Anemia type: unspecified type Qualified Code(s): D64.9 - Anemia, unspecified (2) GI bleed GI bleed type/associated pathology: melena Qualified Code(s): K92.1 - Melena
[2025-02-26] MEDS: PANTOprazole 40 MG in DEXTROSE 5% MINI-B 100 ML IV SCH (18:13)
[2025-02-26] MEDS: PANTOPRAZOLE BOLUS/DRIP IV STA (18:23)
[2025-02-26] MEDS: SODIUM CHLORIDE 0.9% 1,000 ML IV SCH (18:36)
[2025-02-26] MEDS: cefTRIAXone SODIUM 1,000 MG/50 ML BAG IV STA (19:12)
[2025-02-26] MEDS: OCTREOTIDE ACETATE 500 MCG in SODIUM CHLORIDE 0.9% 100 ML IV SCH (19:39)
[2025-02-26 23:08] LABS: Hematocrit (blood only) 21.6 % (37.0-47.0); Hemoglobin 7.0 g/dl (12.0-16.0)
[2025-02-27] MEDS: LEVOTHYROXINE SODIUM 75 MCG TABLET PO SCH (06:23)
[2025-02-27 07:06] LABS: Hematocrit (blood only) 19.8 % (37.0-47.0); Hemoglobin 6.0 g/dl (12.0-16.0); Mean Corpuscular Hemoglobin 29.0 pg (25.0-34.0); Mean Corpuscular Volume 95.7 fL (80.0-100.0); Platelet Count 81 K/uL (130-400); RDW Standard Deviation 61.1 fL (36.4-46.3); Red Blood Count 2.07 M/uL (4.20-5.40); White Blood Count 1.42 K/ul (4.8-10.8)
[2025-02-27 07:11] LABS: Anion Gap 6.0 (3-11); Blood Urea Nitrogen 44.0 mg/dl (6-23); Calcium 8.3 mg/dl (8.6-10.3); Carbon Dioxide 20.0 mmol/L (21-32); Chloride 112.0 mmol/L (98-107); Creatinine Clr Calc Pharmacy 23.2 ml/min; Glucose 117.0 mg/dl (70-99(Fasting)); Magnesium 2.0 mg/dl (1.7-2.4); Potassium 4.3 mmol/L (3.5-5.1); Sodium 138.0 mmol/L (136-145)
[2025-02-27] MEDS: IRON SUCROSE 200 MG in SODIUM CHLORIDE 0.9% 100 ML IV ONE (08:01)
--- NOTE | 2025-02-27 09:23 | Hospitalist Progress Note ---
Date of Service February 27, 2025 Assessment & Plan (1) Anemia: (2) GI bleed: Plan: 75 yo F with hx of hereditary hemochromatosis, hyperlipidemia,hypothyroidism, idiopathic esophageal varices with bleeding, hypertension, cirrhosis of liver with ascites, acute duodenal ulcer, GERD, TONNY, CKD stage III, pancytopenia, symptomatic anemia who presents with dark stool and anemic, found to have Hgb 6.8 in ED. Pt was recently hospitalized here just about 2 weeks ago due to confusion which was believed to be secondary to hepatic encephalopathy. After her hospitalization she was feeling fairly well, she did have a blood transfusion on Wednesday (as she follows w/ Dr. Smith for anemia, pancytopenia, poss. MDS). Then over the weekend she had looser stool that were quite dark. Today she had a tele visit w/ GI/ hepatology Dr. Sauceda - and discussed her having dark stools and was advised to present to the ED for further work up. Recently pt was evaluated at [facility] for her anemia by GI, where she had upper endoscopy and colonoscopy done - no bleeding was found at that time. Plan was to do video capsule endoscopy as outpt. She just consented to this outpt study on 02/21. Anemia - acute on chronic Poss. GI bleed FOBT in ER positive Liver cirrhosis History of hematochromatosis Recent EGD and colonoscopy were unremarkable. Plan for capsule endoscopy as outpt. At that time pt did not have dark stools, but was anemic Pt sent by outpt GI to ER for further work up - as last work up was more than 2 weeks ago Pt started on IV PPI in ED, will cont. Plan to transfuse 1 unit of pRBC -- pt was not transfused yet as has antibodies and blood is coming from [place] started octreotide and ceftriaxone on admission NPO after midnight GI consulted - plan for EGD after pt transfused Pancytopenia, liver cirrhosis, poss. MDS hx of Iron deficiency anemia Bone marrow biopsy recently Follow-up with heme-oncDr. Smith Last blood transfusion was on Wednesday Will follow the labs Hypothyroidism On Synthyroid TSH 5.2 in 01/2025 Follow-up with PCP Gout On allopurinol CKD stage III Presents creatinine 1.7 which seems to be around baseline cont. to monitor DVT prophylaxis : SCDs for now, monitor platelets Disposition : Med/telemetry Full code Admission and Anticipated Discharge Date Admission Date: February 26, 2025 Subjective Pt seen in follow up of anemia, GI bleed (FOBT positive) Currently lying in bed in NAD Says she had a few dark stool, then later some bright red as well Was given venofer today as unfortunately was not able to be transfused yet - as pt has antibodies - blood is coming from [facility] [place], Hgb 6 this AM No fever, chills, chest pain, shortness of breath, no abd. pain Review of Systems Review of Systems: All systems reviewed & are unremarkable except as noted in Subjective Physical Exam Physical Exam: Constitutional: WD/WN, vitals as a chetan Eyes: PERRL, conjunctiva e normal, anicteri c sclerae ENMT: external ear and n ose normal, oropha rynx normal Neck: normal visual insp ection Respiratory: normal respiratory effort, lungs yolis ar to auscultation Cardiovascular: Rate/Rhythm: regul ar rate Gastrointestinal ( Abdomen): Inspection/Auscult ation: abdomen nor mal to inspection Percussion/Palpat ion: abdomen soft; abdomen nontender Musculoskeletal: moves extremities Skin: no rashes, warm an d dry Neurologic: PERRL, EOMI, no fa ce palsy, no dysar thria, moves extre mities Psychiatric: A+Ox3, euthymic af fect Results & Data Results & Data Vital Signs (Past 12 Hours) Vital Signs Temp Pulse Pulse Resp BP Pulse Ox O2 Del Method 02/27/25 07:20 36.7 C 87 18 126/69 95 Room Air 02/27/25 02:33 36.5 C 79 18 125/70 99 Room Air 02/27/25 00:54 Room Air 02/26/25 23:15 87 02/26/25 22:26 Room Air 02/26/25 21:45 36.7 C 84 18 131/67 99 Room Air Laboratory Results 02/27/25 02/26/25 02/26/25 Range/Units 06:01 22:52 17:50 WBC 1.42 L (4.8-10.8) K/ul RBC 2.07 L (4.20-5.40) M/uL Hgb 6.0 L* 7.0 L (12.0-16.0) g/dl Hct 19.8 L* 21.6 L (37.0-47.0) % MCV 95.7 (80.0-100.0) fL MCH 29.0 (25.0-34.0) pg MCHC 30.3 L (32.0-36.0) g/dL RDW Std Deviation 61.1 H (36.4-46.3) fL RDW Coeff of Carly 18.0 H (11.5-14.5) % Plt Count 81 L (130-400) K/uL MPV 11.0 (9.4-12.4) fL PT (9.0-12.0) Seconds INR (0.9-1.1) APTT (21-31) Seconds PTT Ratio Sodium 138 (136-145) mmol/L Potassium 4.3 (3.5-5.1) mmol/L Chloride 112 H (98-107) mmol/L Carbon Dioxide 20 L (21-32) mmol/L Anion Gap 6 (3-11) BUN 44 H (6-23) mg/dl Creatinine 1.77 H (0.6-1.2) mg/dl Est Cr Clr Drug Dosing 23.2 ml/min eGFR 29.24 BUN/Creatinine Ratio 24.9 H (10-20) Glucose 117 H (70-99(Fasting)) mg/dl Calcium 8.3 L (8.6-10.3) mg/dl Phosphorus 3.2 (2.5-4.9) mg/dl Magnesium 2.0 (1.7-2.4) mg/dl Total Bilirubin (0.2-1.0) mg/dl AST (13-39) U/L ALT (7-52) U/L Alkaline Phosphatase (34-104) U/L Troponin I High Sens (0-14) pg/ml Total Protein (6.0-8.3) gm/dl Albumin (3.4-5.0) gm/dl Globulin (2.5-4.0) gm/dl Albumin/Globulin Ratio (0.9-2) POC Stool Occult Blood (Negative) Blood Type Antibody Screen Antibody Identification Antibody ID Referred Pending Antibody ID Comment Crossmatch 02/26/25 02/26/25 Range/Units 16:54 15:50 WBC 2.17 L (4.8-10.8) K/ul RBC 2.28 L (4.20-5.40) M/uL Hgb 6.8 L* (12.0-16.0) g/dl Hct 21.5 L (37.0-47.0) % MCV 94.3 (80.0-100.0) fL MCH 29.8 (25.0-34.0) pg MCHC 31.6 L (32.0-36.0) g/dL RDW Std Deviation 62.3 H (36.4-46.3) fL RDW Coeff of Carly 18.5 H (11.5-14.5) % Plt Count 89 L (130-400) K/uL MPV 10.1 (9.4-12.4) fL PT 12.1 H (9.0-12.0) Seconds INR 1.1 (0.9-1.1) APTT 25 (21-31) Seconds PTT Ratio 0.9 Sodium 136 (136-145) mmol/L Potassium 4.2 (3.5-5.1) mmol/L Chloride 109 H (98-107) mmol/L Carbon Dioxide 20 L (21-32) mmol/L Anion Gap 7 (3-11) BUN 48 H (6-23) mg/dl Creatinine 1.74 H (0.6-1.2) mg/dl Est Cr Clr Drug Dosing 23.2 ml/min eGFR 29.85 BUN/Creatinine Ratio 27.6 H (10-20) Glucose 136 H (70-99(Fasting)) mg/dl Calcium 8.9 (8.6-10.3) mg/dl Phosphorus (2.5-4.9) mg/dl Magnesium (1.7-2.4) mg/dl Total Bilirubin 1.1 H (0.2-1.0) mg/dl AST 53 H (13-39) U/L ALT 30 (7-52) U/L Alkaline Phosphatase 93 (34-104) U/L Troponin I High Sens 12.1 (0-14) pg/ml Total Protein 5.0 L (6.0-8.3) gm/dl Albumin 3.1 L (3.4-5.0) gm/dl Globulin 1.9 L (2.5-4.0) gm/dl Albumin/Globulin Ratio 1.6 (0.9-2) POC Stool Occult Blood Positive A (Negative) Blood Type B Positive Antibody Screen POSITIVE A Antibody Identification Pending Antibody ID Referred Antibody ID Comment Cancelled Crossmatch See Detail Medications Administered Current Inpatient Medications Allopurinol (Allopurinol 100 Mg Tab) 100 mg PO DAILY YOLIS Stop: 03/29/25 08:59 Pantoprazole Sodium 40 mg/ (Dextrose) 100 mls @ 20 mls/hr IV Q5H YOLIS Stop: 03/28/25 17:14 Last Admin: 02/27/25 04:53 Dose: 8 mg/hr, 20 mls/hr Sodium Chloride (Nss) 1,000 mls @ 80 mls/hr IV .[id number] YOLIS Stop: 03/01/25 16:59 Last Admin: 02/27/25 07:24 Dose: 80 mls/hr Octreotide Acetate 500 mcg/ (Sodium Chloride) 100.5 mls @ 10.05 mls/hr IV .Q10H YOLIS Stop: 03/28/25 17:44 Last Admin: 02/27/25 03:39 Dose: 50 mcg/hr, 10.1 mls/hr Ceftriaxone Sodium (Rocephin) 1,000 mg in 50 mls @ 100 mls/hr IV Q24H YOLIS Stop: 03/01/25 17:59 Levothyroxine Sodium (Levothyroxine Sodium 75 Mcg Tablet) 75 mcg PO DAILYBB YOLIS Stop: 03/29/25 06:29 Last Admin: 02/27/25 06:23 Dose: 75 mcg (1) Anemia Anemia type: unspecified type Qualified Code(s): D64.9 - Anemia, unspecified (2) GI bleed GI bleed type/associated pathology: melena Qualified Code(s): K92.1 - Melena
--- NOTE | 2025-02-27 09:44 | Gastrointestinal Consultation ---
Date of Consultation February 27, 2025 Assessment & Plan (1) GI bleed: (2) Anemia: Plan Patient admitted with concern for GI bleeding. Initially hgb was 6.8, which is worse today at 6. Other than dark stools, she does not have other GI concerns currently. I discussed this case with Dr. Franks. - Will plan to perform an EGD on the patient, however would need to have hgb >7. Currently, she is planned for transfusion, though due to antibodies, will need blood transferred in. - continue to monitor hgb/hct. - continue with PPI and octreotide drip. - keep NPO at this time. - would still continue with plans for outpatient capsule endoscopy as set up through [facility]. -Further recommendations to come with Supervising GI provider on medical rounds. Please see co-signature comments. Supervising Physician Co-Signing Physician Notes The patient was seen and evaluated. Hospital labs, data, records and imaging reviewed at length with the GI [facility]. The patient is known to me from previous hospitalization with anemia and gastrointestinal bleeding. She is status post extensive endoluminal evaluation without significant findings and is recommended for capsule endoscopy which unfortunately has not been performed at this point. The patient continues to have progressive anemia with melena. Additional blood product has been ordered. I do recommend repeat upper endoscopy to determine whether she may have a treatable source of upper gastrointestinal bleeding. Further recommendation to follow thereafter. Thank you for the courtesy of the consultation. History of Present Illness Reason for Consultation: GIB, history of cirrhosis, esophageal varices Requesting Physician: Tyson Walker MD Attending Physician: Tyson Walker MD History of Present Illness Patient is a 75 year old female with a past medical history of hereditary hemochromatosis, hyperlipidemia, hypothyroidism, esophageal varices with bleeding, hypertension, cirrhosis of liver with ascites, duodenal ulcer, GERD, TONNY, CKD stage III, pancytopenia, and anemia who presented to the ED on 02/26/25 with complaints of dark stool and anemia, Upon work up in the ED, she was found to have a hgb of 6.8. Pt was recently hospitalized here at [facility] about 2 weeks ago due to confusion which was believed to be secondary to hepatic encephalopathy. After her hospitalization, she tells me she was feeling fairly well. She had a blood transfusion last week (she follows with Dr. Smith for anemia, pancytopenia, possible MDS). She reports that stools have been dark which has been an ongoing issue. Prior to coming to the ED, sh reports having had a visit with [facility] GI/ hepatology, Dr. Sauceda. Given the patients symptoms, it was advised that she present to the ED for further work up. Recently she was evaluated at [facility] for her anemia by GI, where she had upper endoscopy and colonoscopy done (see below). Plan was to get a video capsule endoscopy done as an outpatient. She reports this is scheduled for 03/13 at [facility]. Currently, she feels well. The GI ros are otherwise unremarkable. 02/27/25 hgb 6, hct 19.8, wbc 1.42, plts 81, Na 138, K 4.3, BUN 44, Creatinine 1.77, Mg 2, T bili 1.1, AST 53, ALT 30, ALK phos 93. 02/26/25 occult blood positive. EGD 01/31/25: Z-line regular, 39 cm from the incisors. - Normal esophagus. No esophageal varices. - Portal hypertensive gastropathy. No bleeding. No gastric varices. No GAVE. - Mild antral gastritis. - Normal duodenal bulb and second portion of the duodenum. - No specimens collected. Colonoscopy 01/31/25: Preparation of the colon was fair. - Diverticulosis in the sigmoid colon and in the descending colon. - Internal hemorrhoids. - No specimens collected. Allergies Allergy/AdvReac Type Severity Reaction Status Date / Time diphenhydramine Allergy Intermediate Rash Verified 02/23/25 13:02 [From Benadryl] furosemide [From Lasix] Allergy Intermediate Rash Verified 02/23/25 15:26 Sulfa (Sulfonamide Allergy Intermediate Rash Verified 02/23/25 13:02 Antibiotics) Home Medications Medication Instructions Recorded Confirmed Type allopurinol 100 mg tablet 100 mg PO DAILY 10/26/24 02/26/25 History bumetanide 1 mg tablet 1 mg PO 3XWK 10/26/24 02/26/25 History levothyroxine 75 mcg tablet 75 mcg PO DAILYBB 10/26/24 02/26/25 History (Synthroid) omeprazole 20 mg capsule,delayed 0 mg PO DAILY 10/26/24 02/26/25 History release spironolactone 50 mg tablet 50 mg PO DAILY 10/26/24 02/26/25 History magnesium oxide 300 mg PO DAILY 02/08/25 02/26/25 History peg 400-propylene glycol 0.4 %-0.3 1 drp ophthalmic (eye) HS PRN Dry 02/08/25 02/26/25 History % eye gel drops (GenTeal Tears Eyes Severe Gel Drops) vit C 250 mg-vit E 90 mg-zinc 40 1 tab PO BID 02/08/25 02/26/25 History mg-copper 1 [id number]-xemmls capsule (PreserVision AREDS-2) Patient History Medical History Gout Chronic kidney disease GERD (gastroesophageal reflux disease) Cirrhosis Anemia Glaucoma Hypothyroidism Surgical History Tubal ligation status History of breast biopsy Social History Smoking Status: Never smoker Second Hand Exposure: No; Do You Dip or Chew Tobacco: No; Hx Alcohol Use: No Hx Substance Use: No Preferred Language: Israeli Communication Ability: Effective Er Medical Technician Required: No Beliefs That Will Affect Care: Druze Druze Beliefs: Mandaen Current Living Situation: Alone Other Information That Helps Us Care for You: No Feels Safe at Home: Yes Safety Concerns: Feels Safe At This Time Assistive Devices: None Review of Systems Review of Systems: All systems reviewed & are unremarkable except as noted in HPI & below Physical Exam Constitutional: WD/WN, vitals as above Respiratory: normal respiratory effort, lungs clear to auscultation Cardiovascular: Rate/Rhythm: regular rate and regular rhythm Gastrointestinal (Abdomen): normal bowel sounds, soft, nontender, no hepatosplenomegaly Psychiatric: Orientation: alert and oriented x 3 Affect: euthymic affect Results & Data Vital Signs (Past 12 Hours) Vital Signs Temp Pulse Pulse Resp BP Pulse Ox O2 Del Method 02/27/25 07:20 98.1 F 87 18 126/69 95 Room Air 02/27/25 02:33 97.7 F 79 18 125/70 99 Room Air 02/27/25 00:54 Room Air 02/26/25 23:15 87 02/26/25 22:26 Room Air 02/26/25 21:45 98.1 F 84 18 131/67 99 Room Air Coding Level of Care Code 16612 INT INP/OBS CARE MIN Diagnoses GI bleed K92.1 GI bleed type/associated pathology: melena Anemia D64.9 Anemia type: unspecified type (1) GI bleed GI bleed type/associated pathology: melena Qualified Code(s): K92.1 - Melena (2) Anemia Anemia type: unspecified type Qualified Code(s): D64.9 - Anemia, unspecified
[2025-02-27] MEDS: BUMETANIDE 1 MG TAB PO ONE (17:14)
[2025-02-27] MEDS: cefTRIAXone SODIUM 1,000 MG/50 ML BAG IV SCH (17:56)
[2025-02-27 21:38] LABS: Hematocrit (blood only) 23.1 % (37.0-47.0); Hemoglobin 7.3 g/dl (12.0-16.0)
[2025-02-28 06:45] LABS: Hematocrit (blood only) 22.3 % (37.0-47.0); Hemoglobin 7.0 g/dl (12.0-16.0); Mean Corpuscular Hemoglobin 29.7 pg (25.0-34.0); Mean Corpuscular Volume 94.5 fL (80.0-100.0); Platelet Count 79 K/uL (130-400); RDW Standard Deviation 60.9 fL (36.4-46.3); Red Blood Count 2.36 M/uL (4.20-5.40); White Blood Count 1.36 K/ul (4.8-10.8)
[2025-02-28 07:14] LABS: Anion Gap 5.0 (3-11); Blood Urea Nitrogen 40.0 mg/dl (6-23); Calcium 8.4 mg/dl (8.6-10.3); Carbon Dioxide 22.0 mmol/L (21-32); Chloride 114.0 mmol/L (98-107); Creatinine Clr Calc Pharmacy 20.7 ml/min; Glucose 111.0 mg/dl (70-99(Fasting)); Magnesium 1.9 mg/dl (1.7-2.4); Potassium 3.9 mmol/L (3.5-5.1); Sodium 141.0 mmol/L (136-145)
[2025-02-28] MEDS ORDERED: SODIUM CHLORIDE 0.9% 100 ML IV PRN (08:53)
--- NOTE | 2025-02-28 09:35 | History & Physical Bridge Note ---
Date of Service February 28, 2025 History & Physical Bridge Note I have examined the patient, reviewed the History & Physical and in the interval since the performance of the History & Physical I have noted the following changes of clinical significance: no changes noted. She has received one unit of blood and is planned for another unit this morning. she has still been noticing bright red blood in her stool. she has coordinated with her outpatient breakdown worker and is planned to have a capsule endoscopy tomorrow. she has been NPO. no sob or chest pain. - will plan to proceed with EGD today. - if EGD is unremarkable, would recommend discharge to home so that she can undergo the capsule endoscopy tomorrow for further evaluation as this needs to be done currently as an inpatient.
[2025-02-28 10:18] VITALS: TEMP 98.4
[2025-02-28 11:59] VITALS: RESP 16
[2025-02-28] MEDS ORDERED: ATROPINE SULFATE 0.1 MG/ML 10ML SYR IV PRN ×2 (12:02→12:12)
--- NOTE | 2025-02-28 12:10 | Anesthesiology Consultation ---
Date of Service February 28, 2025 Assessment & Plan Chart Review Chart Review: Acceptable Risk for Surgery Consults Requested none ASA ASA3 Proposed Anesthesia Anesthesia Type: MAC Risk / Benefits Reviewed With: PT / POA / Parent / Guardian, Accepts Plan and Informed Consent Obtained History Surgery Operation Date: 02/28/25 16:30 Proposed Procedures p Esophagogastroduodenoscopy Dr. Franks - Kelton Franks MD Height/Weight Height: 5 ft 1 in Weight: 66 kg Allergies Allergy/AdvReac Type Severity Reaction Status Date / Time diphenhydramine Allergy Intermediate Rash Verified 02/23/25 13:02 [From Benadryl] furosemide [From Lasix] Allergy Intermediate Rash Verified 02/23/25 15:26 Sulfa (Sulfonamide Allergy Intermediate Rash Verified 02/23/25 13:02 Antibiotics) Medications Home Medications Medication Instructions Recorded Confirmed Last Taken allopurinol 100 mg tablet 100 mg PO DAILY 10/26/24 02/26/25 02/08/25 bumetanide 1 mg tablet 1 mg PO 3XWK 10/26/24 02/26/25 02/07/25 levothyroxine 75 mcg tablet 75 mcg PO DAILYBB 10/26/24 02/26/25 02/08/25 (Synthroid) omeprazole 20 mg capsule,delayed 0 mg PO DAILY 10/26/24 02/26/25 Unknown release spironolactone 50 mg tablet 50 mg PO DAILY 10/26/24 02/26/25 02/08/25 magnesium oxide 300 mg PO DAILY 02/08/25 02/26/25 02/08/25 peg 400-propylene glycol 0.4 %-0.3 1 drp ophthalmic (eye) HS PRN Dry 02/08/25 02/26/25 Unknown % eye gel drops (GenTeal Tears Eyes Severe Gel Drops) vit C 250 mg-vit E 90 mg-zinc 40 1 tab PO BID 02/08/25 02/26/25 02/08/25 mg-copper 1 [id number] capsule (PreserVision AREDS-2) Active Medications Generic Name Dose Route Start Last Admin Trade Name Freq PRN Reason Stop Dose Admin Allopurinol 100 mg 02/27/25 09:00 02/28/25 09:12 Allopurinol 100 Mg Tab PO 03/29/25 08:59 100 mg DAILY YOLIS Administration Pantoprazole Sodium 40 mg/ 100 mls @ 20 mls/hr 02/26/25 17:15 02/28/25 11:39 Dextrose IV 03/28/25 17:14 8 mg/hr Q5H YOLIS 20 mls/hr Infusion 8 MG/HR Octreotide Acetate 500 mcg/ 100.5 mls @ 10.05 mls/hr 02/26/25 17:45 02/28/25 11:37 Sodium Chloride IV 03/28/25 17:44 50.25 mcg/hr .Q10H YOLIS 10.1 mls/hr Administration 50 MCG/HR Ceftriaxone Sodium 1,000 mg in 50 mls @ 100 mls/hr 02/27/25 18:00 02/27/25 18:26 Rocephin IV 03/01/25 17:59 Infused Q24H YOLIS Infusion Levothyroxine Sodium 75 mcg 02/27/25 06:30 02/28/25 05:52 Levothyroxine Sodium 75 Mcg Tablet PO 03/29/25 06:29 Not Given DAILYBB YOLIS NPO Date Last Intake of Fluids: 02/28/25 Time Last Intake of Fluids: 10:00 Date Last Intake of Solids: 02/26/25 Past Medical History Medical History Gout Chronic kidney disease GERD (gastroesophageal reflux disease) Cirrhosis Anemia Glaucoma Hypothyroidism Exercise / Class Metabolic Activity II 4-5 Yardwork/Stairs/Walk up hill Past Surgical History Surgical History Tubal ligation status History of breast biopsy Past Anesthesia History No Hx of Anesthesia Complications History of PONV No Hx of PONV Social History Smoking Status: Never smoker Do You Dip or Chew Tobacco: No Hx Alcohol Use: No Hx Substance Use: No Review of Systems Constitutional: as per Subjective / HPI Eyes: as per Subjective / HPI Ear, Nose, Mouth, Throat: as per Subjective / HPI Respiratory: as per Subjective / HPI Cardiovascular: as per Subjective / HPI Gastrointestinal: as per Subjective / HPI Genitourinary (Female): as per Subjective / HPI Musculoskeletal: as per Subjective / HPI Integumentary: as per Subjective / HPI Neurologic: as per Subjective / HPI Psychiatric: as per Subjective / HPI Endocrine: as per Subjective / HPI Hematologic / Lymphatic: as per Subjective / HPI Allergy / Immunological: as per Subjective / HPI Physical Exam Vital Signs Last Vital Signs Temp 36.9 C 02/28/25 11:52 Pulse 82 02/28/25 11:52 Resp 16 02/28/25 11:52 BP 126/48 L 02/28/25 11:52 Pulse Ox 98 02/28/25 11:52 O2 Del Method Room Air 02/28/25 11:52 O2 Flow Rate 0 02/27/25 18:05 Constitutional no acute distress ENMT Mouth: no dentition abnormality Thyromental Distance: < 3.5 Finger Breadths Mallampati Class: II Neck normal visual inspection and trachea midline Respiratory normal respiratory effort; does not use accessory muscles Cardiovascular Rate/Rhythm: regular rate and regular rhythm Chest (Breasts) Chest: no pacemaker and no vascular access device or port Musculoskeletal Spine: no pain with cervical ROM Extremities: extremities normal to inspection Neurologic moves all extremities Psychiatric Orientation: alert and oriented x 3 Testing Laboratory Results 02/28/25 06:25 02/28/25 06:25 PT 12.1 Seconds (9.0-12.0) H 02/26/25 15:50 INR 1.1 (0.9-1.1) 02/26/25 15:50 APTT 25 Seconds (21-31) 02/26/25 15:50 Blood Type B Positive 02/26/25 15:50 Antibody Screen POSITIVE A 02/26/25 15:50
[2025-02-28] MEDS ORDERED: PROPOFOL IV EMULSION 10 MG/ML 20 ML VIAL IV ONE (12:11)
[2025-02-28] MEDS ORDERED: LIDOCAINE 2% 2 ML VIAL/AMP(20MG/ML) INFIL ONE (12:11)
[2025-02-28] MEDS: Nursing to Pharmacy Communication SCH (12:38)
[2025-02-28 13:03] VITALS: O2SAT 97
--- NOTE | 2025-02-28 13:08 | GI REPORT ---
[facility] Patient: YRN GRACE : 1950 Sex at : Female Age: 75 Years Procedure: Upper GI endoscopy Date: 02/28/2025 Attending Physician: Kelton Franks MD Referring MD: Tsyon Walker Md; Kelton Franks MD Indications: - Iron deficiency anemia - Melena Medications: - See the Anesthesia note for documentation of the administered medications Complications: - No immediate complications. Estimated Blood Loss: - Estimated blood loss: None. Procedure: - Prior to the procedure, a History and Physical was performed, and patient medications and allergies were reviewed. The patient's tolerance of previous anesthesia was also reviewed. The risks and benefits of the procedure and the sedation options and risks were discussed with the patient. All questions were answered, and informed consent was obtained. Prior Anticoagulants: The patient has taken no anticoagulant or antiplatelet agents. ASA Grade Assessment: III - A patient with severe systemic disease. After reviewing the risks and benefits, the patient was deemed in satisfactory condition to undergo the procedure. - The EGD scope was introduced through the mouth and advanced to the third part of the duodenum. - The upper GI endoscopy was accomplished without difficulty. - The patient tolerated the procedure well. Findings: - The examined duodenum was normal. - Mild gastric antral vascular ectasia without bleeding was present in the prepyloric region of the stomach. - The Z-line was regular and was found 37 cm from the incisors. - No blood, altered blood or evidence of active bleeding is seen. Impression: - Normal examined duodenum. - Gastric antral vascular ectasia without bleeding. - Z-line regular, 37 cm from the incisors. - No blood, altered blood or evidence of active bleeding is seen. - No specimens collected. Recommendation: - To visualize the small bowel, perform video capsule endoscopy tomorrow. - Clear liquid diet today. - Hospital discharge is advised as patient has capsule endoscopy arranged for tomorrow. Small bowel bleeding is suspected in the absence of any significant findings on EGD and colonoscopy. - Recommend maintaining patient on clear liquid diet in preparation for capsule tomorrow. Close follow-up advised. Procedure Code(s): - 52153, Esophagogastroduodenoscopy, flexible, transoral; diagnostic, including collection of specimen(s) by brushing or washing, when performed (separate procedure) Diagnosis Code(s): - D50.9, Iron deficiency anemia, unspecified - K92.1, Melena (includes Hematochezia) - K31.819, Angiodysplasia of stomach and duodenum without bleeding CPT(R) - 2023 copyright [employer]. All Rights Reserved. The CPT codes, CCI edits and ICD codes generated are intended as suggestions and were generated based on input data. These codes are preliminary and upon crime investigator special agent review may be revised to meet current compliance and payer requirements. The provider is responsible for the final determination of appropriate codes, and modifiers. Kelton Franks MD This document has been electronically signed. Note Initiated:02/28/2025 Note Completed:02/28/2025 1:06 PM [email or web address]\Results\LIVE\[id number].[email or web address]
[2025-02-28 13:27] VITALS: BP 110/64
--- NOTE | 2025-02-28 14:20 | Anesthesiology Progress Note ---
Date of Service February 28, 2025 Anesthesia Post Procedure Vital Signs Vital Signs: Temp Pulse Pulse Pulse Resp BP BP 02/28/25 13:24 36.9 C 83 16 110/64 02/28/25 13:14 80 16 121/54 L 02/28/25 13:01 82 16 119/48 L 02/28/25 12:46 84 16 120/45 L 02/28/25 11:52 36.9 C 82 16 126/48 L 02/28/25 11:30 36.9 C 75 18 117/69 02/28/25 11:25 36.9 C 75 18 117/69 02/28/25 10:30 36.9 C 78 14 120/64 02/28/25 10:00 36.9 C 79 16 121/69 02/28/25 09:45 36.8 C 80 16 124/72 02/28/25 09:29 36.3 C L 82 14 123/66 02/28/25 08:48 02/28/25 07:16 37.0 C 82 16 127/58 L 02/28/25 05:53 89 02/28/25 02:29 36.9 C 79 18 117/66 02/27/25 23:29 82 02/27/25 22:48 36.7 C 77 18 118/72 02/27/25 20:00 02/27/25 19:24 36.6 C 86 18 149/60 H 02/27/25 18:05 36.8 C 83 17 135/74 02/27/25 17:06 36.8 C 80 18 138/77 02/27/25 16:36 36.7 C 87 17 145/76 H 02/27/25 16:21 36.7 C 88 18 134/74 02/27/25 16:02 36.8 C 88 18 134/73 02/27/25 15:25 36.9 C 86 18 132/62 Pulse Ox O2 Del Method O2 Flow Rate 02/28/25 13:24 97 Room Air 02/28/25 13:14 97 Room Air 02/28/25 13:01 97 Room Air 02/28/25 12:46 96 Room Air 02/28/25 11:52 98 Room Air 02/28/25 11:30 98 02/28/25 11:25 98 Room Air 02/28/25 10:30 97 02/28/25 10:00 97 02/28/25 09:45 97 02/28/25 09:29 95 02/28/25 08:48 Room Air 02/28/25 07:16 95 Room Air 02/28/25 05:53 02/28/25 02:29 95 Room Air 02/27/25 23:29 02/27/25 22:48 97 Room Air 02/27/25 20:00 Room Air 02/27/25 19:24 95 Room Air 02/27/25 18:05 97 0 02/27/25 17:06 98 0 02/27/25 16:36 98 0 02/27/25 16:21 95 0 02/27/25 16:02 97 0 02/27/25 15:25 97 Room Air Transfer of Care Handoff Completed per policy Notes Mental Status: alert / awake / arousable Patient Amnestic to Procedure: Yes Nausea / Vomiting: adequately controlled Pain: adequately controlled Airway Patency, RR, SpO2: stable & adequate BP & HR: stable & adequate Hydration State: stable & adequate Anesthetic Complications: no major complications apparent
[2025-02-28 15:04] LABS: Hematocrit (blood only) 25.5 % (37.0-47.0); Hemoglobin 8.3 g/dl (12.0-16.0)
--- NOTE | 2025-02-28 15:05 | Hospitalist Progress Note ---
Date of Service February 28, 2025 Assessment & Plan (1) Anemia: (2) GI bleed: Plan: 75 yo F with hx of hereditary hemochromatosis, hyperlipidemia,hypothyroidism, idiopathic esophageal varices with bleeding, hypertension, cirrhosis of liver with ascites, acute duodenal ulcer, GERD, TONNY, CKD stage III, pancytopenia, symptomatic anemia who presents with dark stool and anemic, found to have Hgb 6.8 in ED. Pt was recently hospitalized here just about 2 weeks ago due to confusion which was believed to be secondary to hepatic encephalopathy. After her hospitalization she was feeling fairly well, she did have a blood transfusion on Wednesday (as she follows w/ Dr. Smith for anemia, pancytopenia, poss. MDS). Then over the weekend she had looser stool that were quite dark. Today she had a tele visit w/ GI/ hepatology Dr. Sacueda - and discussed her having dark stools and was advised to present to the ED for further work up. Recently pt was evaluated at [facility] for her anemia by GI, where she had upper endoscopy and colonoscopy done - no bleeding was found at that time. Plan was to do video capsule endoscopy as outpt. She just consented to this outpt study on 02/21. Acute on chronic normocytic anemia Rectal bleed H/O hemochromatosis +FOBT Liver cirrhosis Recent EGD and colonoscopy were unremarkable. --S/P repeat EGD on 02/28/2025: Normal examined duodenum. Gastric antral vascular ectasia without bleeding. Z-line regular, 37 cm from the incisors. No blood, altered bladder or evidence of active bleeding is seen. No specimens collected. --S/P 2units PRBCs -- Received Protonix, octreotide drip -- Appreciate GI input -- Clear liquid diet today Plan to discharge home today for capsule endoscopy tomorrow as recommended by GI Advised patient to follow-up with GI, hematology, PCP on discharge Pancytopenia, liver cirrhosis, poss. MDS H/O Iron deficiency anemia Bone marrow biopsy recently Follow-up with heme-onc, Dr. Smith Received IV Venofer on 02/27/2025 Advised to follow-up with hematology on discharge Hypothyroidism TSH 5.2 in 01/2025 Continue levothyroxine Follow-up with PCP Gout On allopurinol CKD stage III Creatinine at baseline Monitor renal function DVT Px: SCDs CODE STATUS Full code Disposition Home Admission and Anticipated Discharge Date Admission Date: February 26, 2025 Subjective Patient is seen and examined at bedside States having minimal rectal bleed earlier this morning Had EGD today Post EGD, patient denies any bleeding issues Scheduled for capsule endoscopy tomorrow, patient prefers to be discharged home today Denies any chest pain, dyspnea, nausea, vomiting, abdominal pain Slept better overnight Offers no other complaints Review of Systems Review of Systems: All systems reviewed & are unremarkable except as noted in Subjective Physical Exam Physical Exam: Physical Exam: Vitals signs as noted above General Appearance:Moderately built and nourished, no apparent distress Head: normocephalic, Atraumatic Eyes: normal inspection, EOMI,+ pallor Neck: supple, Trachea midline Respiratory/Chest: Normal breath sounds, CTA, No accessory muscle use Cardiovascular: S1, S2, No murmur Abdomen/GI:Soft, Non tender, Bowel sounds present Extremities/Musculoskeletal:normal inspection, no edema Neurologic/Psych:AAOX3, grossly no focal neurological deficits Skin: normal color, warm Results & Data Results & Data Vital Signs (Past 12 Hours) Vital Signs Temp Pulse Pulse Pulse Resp BP BP 02/28/25 14:36 87 02/28/25 13:24 36.9 C 83 16 110/64 02/28/25 13:14 80 16 121/54 L 02/28/25 13:01 82 16 119/48 L 02/28/25 12:46 84 16 120/45 L 02/28/25 11:52 36.9 C 82 16 126/48 L 02/28/25 11:30 36.9 C 75 18 117/69 02/28/25 11:25 36.9 C 75 18 117/69 02/28/25 10:30 36.9 C 78 14 120/64 02/28/25 10:00 36.9 C 79 16 121/69 02/28/25 09:45 36.8 C 80 16 124/72 02/28/25 09:29 36.3 C L 82 14 123/66 02/28/25 08:48 02/28/25 07:16 37.0 C 82 16 127/58 L 02/28/25 05:53 89 Pulse Ox O2 Del Method 02/28/25 14:36 02/28/25 13:24 97 Room Air 09/17/25 13:14 97 Room Air 02/28/25 13:01 97 Room Air 02/28/25 12:46 96 Room Air 02/28/25 11:52 98 Room Air 02/28/25 11:30 98 02/28/25 11:25 98 Room Air 02/28/25 10:30 97 02/28/25 10:00 97 02/28/25 09:45 97 02/28/25 09:29 95 02/28/25 08:48 Room Air 02/28/25 07:16 95 Room Air 02/28/25 05:53 Laboratory Results Short CBC 02/27/25 02/28/25 Range/Units 20:19 06:25 WBC 1.36 L (4.8-10.8) K/ul Hgb 7.3 L 7.0 L (12.0-16.0) g/dl Hct 23.1 L 22.3 L (37.0-47.0) % Plt Count 79 L (130-400) K/uL BMP 02/28/25 06:25 Sodium 141 Potassium 3.9 Chloride 114 H Carbon Dioxide 22 BUN 40 H Creatinine 1.98 H Glucose 111 H Calcium 8.4 L (1) Anemia Anemia type: unspecified type Qualified Code(s): D64.9 - Anemia, unspecified (2) GI bleed GI bleed type/associated pathology: melena Qualified Code(s): K92.1 - Melena
--- NOTE | 2025-02-28 15:11 | Discharge Summary ---
Date of Service February 28, 2025 Admission HPI Per Admitting Provider 75 yo F with hx of hereditary hemochromatosis, hyperlipidemia,hypothyroidism, idiopathic esophageal varices with bleeding, hypertension, cirrhosis of liver with ascites, acute duodenal ulcer, GERD, TONNY, CKD stage III, pancytopenia, symptomatic anemia who presents with dark stool and anemic, found to have Hgb 6.8 in ED. Pt was recently hospitalized here just about 2 weeks ago due to confusion which was believed to be secondary to hepatic encephalopathy. After her hospitalization she was feeling fairly well, she did have a blood transfusion on Wednesday (as she follows w/ Dr. Smith for anemia, pancytopenia, poss. MDS). Then over the weekend she had looser stool that were quite dark. Today she had a tele visit w/ GI/ hepatology Dr. Sauceda - and discussed her having dark stools and was advised to present to the ED for further work up. Recently pt was evaluated at [facility] [address] for her anemia by GI, where she had upper endoscopy and colonoscopy done - no bleeding was found at that time. Plan was to do video capsule endoscopy as outpt. She just consented to this outpt study on 02/21. Currently pt is lying in bed in NAD, she awake, alert, oriented and answering appropriately. Denies any abdominal pain. She also denies any fever, chills, chest pain, shortness of breath. No n/v. Admission Exam Per Admitting Provider Constitutional: WD/WN, vitals as above Eyes: PERRL, conjunctivae normal, anicteric sclerae ENMT: external ear and nose normal, oropharynx normal Neck: normal visual inspection Respiratory: normal respiratory effort, lungs clear to auscultation Cardiovascular: Rate/Rhythm: regular rate Gastrointestinal (Abdomen): Inspection/Auscultation: abdomen normal to inspection Percussion/Palpation: abdomen soft; abdomen nontender Musculoskeletal: moves extremities Skin: no rashes, warm and dry Neurologic: PERRL, EOMI, accommodation nl, no face palsy, no dysarthria Psychiatric: A+Ox3, euthymic affect Principal Diagnosis Acute on chronic normocytic anemia Rectal bleed Pancytopenia Discharge Data Allergies Allergy/AdvReac Type Severity Reaction Status Date / Time diphenhydramine Allergy Intermediate Rash Verified 02/23/25 13:02 [From Benadryl] furosemide [From Lasix] Allergy Intermediate Rash Verified 02/23/25 15:26 Sulfa (Sulfonamide Allergy Intermediate Rash Verified 02/23/25 13:02 Antibiotics) Consultations 02/26/25 16:57 ED Decision to Admit Stat 02/26/25 17:40 Consult Gastroenterology Routine Procedures Performed Operation Date: 02/28/25 16:30 Actual Procedures p Esophagogastroduodenoscopy - Kelton Franks MD Ordered Studies Laboratory Results WBC 1.36 K/ul (4.8-10.8) L 02/28/25 06:25 RBC 2.36 M/uL (4.20-5.40) L 02/28/25 06:25 Hgb 8.3 g/dl (12.0-16.0) L 02/28/25 14:46 Hct 25.5 % (37.0-47.0) L 02/28/25 14:46 MCV 94.5 fL (80.0-100.0) 02/28/25 06:25 MCH 29.7 pg (25.0-34.0) 02/28/25 06:25 MCHC 31.4 g/dL (32.0-36.0) L 02/28/25 06:25 RDW Std Deviation 60.9 fL (36.4-46.3) H 02/28/25 06:25 RDW Coeff of Carly 17.7 % (11.5-14.5) H 02/28/25 06:25 Plt Count 79 K/uL (130-400) L 02/28/25 06:25 MPV 10.3 fL (9.4-12.4) 02/28/25 06:25 PT 12.1 Seconds (9.0-12.0) H 02/26/25 15:50 INR 1.1 (0.9-1.1) 02/26/25 15:50 APTT 25 Seconds (21-31) 02/26/25 15:50 PTT Ratio 0.9 02/26/25 15:50 Sodium 141 mmol/L (136-145) 02/28/25 06:25 Potassium 3.9 mmol/L (3.5-5.1) 02/28/25 06:25 Chloride 114 mmol/L (98-107) H 02/28/25 06:25 Carbon Dioxide 22 mmol/L (21-32) 02/28/25 06:25 Anion Gap 5 (3-11) 02/28/25 06:25 BUN 40 mg/dl (6-23) H 02/28/25 06:25 Creatinine 1.98 mg/dl (0.6-1.2) H 02/28/25 06:25 Est Cr Clr Drug Dosing 20.7 ml/min 02/28/25 06:25 eGFR 25.56 02/28/25 06:25 BUN/Creatinine Ratio 20.2 (10-20) H 02/28/25 06:25 Glucose 111 mg/dl (70-99(Fasting)) H 02/28/25 06:25 Calcium 8.4 mg/dl (8.6-10.3) L 02/28/25 06:25 Phosphorus 3.2 mg/dl (2.5-4.9) 02/28/25 06:25 Magnesium 1.9 mg/dl (1.7-2.4) 02/28/25 06:25 Total Bilirubin 1.1 mg/dl (0.2-1.0) H 02/26/25 15:50 AST 53 U/L (13-39) H 02/26/25 15:50 ALT 30 U/L (7-52) 02/26/25 15:50 Alkaline Phosphatase 93 U/L (34-104) 02/26/25 15:50 Troponin I High Sens 12.1 pg/ml (0-14) 02/26/25 15:50 Total Protein 5.0 gm/dl (6.0-8.3) L 02/26/25 15:50 Albumin 3.1 gm/dl (3.4-5.0) L 02/26/25 15:50 Globulin 1.9 gm/dl (2.5-4.0) L 02/26/25 15:50 Albumin/Globulin Ratio 1.6 (0.9-2) 02/26/25 15:50 POC Stool Occult Blood Positive (Negative) A 02/26/25 16:54 Blood Type B Positive 02/26/25 15:50 Antibody Screen POSITIVE A 02/26/25 15:50 Antibody Identification Auto Ordoñez Agglutinin Anti-E Anti-K Anti-c 02/26/25 15:50 Antibody Identification Auto Ordoñez Agglutinin Anti-E Anti-K Anti-c 02/26/25 15:50 Antibody Identification Auto Ordoñez Agglutinin Anti-E Anti-K Anti-c 02/26/25 15:50 Antibody Identification Auto Ordoñez Agglutinin Anti-E Anti-K Anti-c 02/26/25 15:50 Antibody ID Referred 02/26/25 17:50 Antibody ID Comment Cancelled 02/26/25 15:50 Crossmatch See Detail 02/26/25 15:50 Hospital Course (1) Anemia: (2) GI bleed: 75 yo F with hx of hereditary hemochromatosis, hyperlipidemia,hypothyroidism, idiopathic esophageal varices with bleeding, hypertension, cirrhosis of liver with ascites, acute duodenal ulcer, GERD, TONNY, CKD stage III, pancytopenia, symptomatic anemia who presents with dark stool and anemic, found to have Hgb 6.8 in ED. Pt was recently hospitalized here just about 2 weeks ago due to confusion which was believed to be secondary to hepatic encephalopathy. After her hospitalization she was feeling fairly well, she did have a blood transfusion on Wednesday (as she follows w/ Dr. Smith for anemia, pancytopenia, poss. MDS). Then over the weekend she had looser stool that were quite dark. Today she had a tele visit w/ GI/ hepatology Dr. Sauceda - and discussed her having dark stools and was advised to present to the ED for further work up. Recently pt was evaluated at [facility] [address] for her anemia by GI, where she had upper endoscopy and colonoscopy done - no bleeding was found at that time. Plan was to do video capsule endoscopy as outpt. She just consented to this outpt study on 02/21. Acute on chronic normocytic anemia Rectal bleed H/O hemochromatosis +FOBT Liver cirrhosis Recent EGD and colonoscopy were unremarkable. --S/P repeat EGD on 02/28/2025: Normal examined duodenum. Gastric antral vascular ectasia without bleeding. Z-line regular, 37 cm from the incisors. No blood, altered bladder or evidence of active bleeding is seen. No specimens collected. --S/P 2units PRBCs -- Received Protonix, octreotide drip -- Appreciate GI input -- Clear liquid diet today Plan to discharge home today for capsule endoscopy tomorrow as recommended by GI Advised patient to follow-up with GI, hematology, PCP on discharge Pancytopenia, liver cirrhosis, poss. MDS H/O Iron deficiency anemia Bone marrow biopsy recently Follow-up with heme-onc, Dr. Smith Received IV Venofer on 02/27/2025 Advised to follow-up with hematology on discharge Hypothyroidism TSH 5.2 in 01/2025 Continue levothyroxine Follow-up with PCP Gout On allopurinol CKD stage III Creatinine at baseline Monitor renal function DVT Px: SCDs CODE STATUS Full code Disposition Home Total Time Total Time Spent Total Time Spent (In Minutes): 44 minutes Discharge Plan Discharge Items Patient Disposition: Home - Self-Care Reason For Visit: GI BLEED, ANEMIA Discharge Diagnosis: Acute on chronic normocytic anemia Rectal bleed Pancytopenia Condition on Discharge: Serious Activity: Per Instructions section Exercise/Sports: Wait until after follow-up appointment Non-emergency contact: Primary Care Provider, Specialist and Cutting And Printing Machine Operator Call non-emergency contact if: you have any medication questions, your symptoms worsen, your pain is concerning for you and you have a fever Follow-up/Referrals: Nichole Araujo MD [Primary Care Provider] - Diet: Clear liquid Addtl Attending Provider Instructions: -- Follow-up with your primary care physician in 1 week -- Follow-up with your flower picker Dr. Matthew Smith in 1 week - Follow-up with your endorsement clerk Dr. Sauceda for capsule endoscopy tomorrow as scheduled- -- Get repeat blood test (complete blood count) in 1 week to monitor your WBC, hemoglobin and platelet count. Follow-up with your physician for further recommendations --Continue liquid diet only for today until midnight and nothing by mouth after midnight for capsule endoscopy tomorrow. Do not take group of medications belonging to NSAIDs group -can increase your risk for bleeding and cause worsening of your kidney function. List Of these medications includes but not limited to: Aspirin Diclofenac Ibuprofen, Motrin, Advil Toradol,ketorolac Naproxen, Aleve, Naprosyn You can take Tylenol as needed for pain or fever When buying [id number] pain medications please consult with pharmacy if you are not sure regarding ingredients, as a lot of the pain medications have combination of NSAIDs and Tylenol. Seek immediate medical attention if your symptoms reoccur or worsen Please review medication list provided on discharge for any medication changes as instructed. Please call if you have any questions or problems. You can reach a [facility] hospitalist on duty at [facility] 24 hours a day by calling [phone] Pending Studies at Discharge: No Stand-Alone Forms: My [facility], Smoking Cessation Medications and DC Order Prescriptions: New pantoprazole [Protonix] 40 mg tablet,delayed release (DR/EC) 40 mg PO DAILY Qty: 30 0RF Continued allopurinol 100 mg Tablet 100 mg PO DAILY levothyroxine [Synthroid] 75 mcg Tablet 75 mcg PO DAILYBB bumetanide 1 mg Tablet 1 mg PO 3XWK Hold Instructions: Resume on 02/14/25. Rx Instructions: MON, WED, & FRI. spironolactone 50 mg Tablet 50 mg PO DAILY Hold Instructions: Resume on 02/13/25. GenTeal Tears Severe Gel Drops 0.4-0.3 % Drops,Gel 1 drp OPHTHALMIC (EYE) HS PRN (Reason: Dry Eyes) Patient Comments: 02/26- otc unable to verify PreserVision AREDS-2 250-90-40-1 mg Capsule 1 tab PO BID Patient Comments: 02/26- otc unable to verify magnesium oxide 300 mg magnesium Tablet 300 mg PO DAILY Patient Comments: 02/26- otc unable to verify Discontinued omeprazole 20 mg Capsule,Delayed Release(Dr/Ec) 0 mg PO DAILY Patient Comments: 02/26- last filled 12/20/24 for 14 days Discharge Orders: Discharge Order (Routine); Ordered 02/28/25 Ordered By: Kenn Jimenez Admission Data Admit Date/Time: 02/26/25 17:43 Attending Provider: Kenn Jimenez Admit Provider: Tyson Walker Primary Care Provider: Nichole Araujo Other Providers: Lou Ceja; Salome Johnson Jr Other Interventions: Discharge Summary Assessment (RN) Last Done: 02/28/25 13:14
[2025-02-28 15:35] VITALS: PULSE 83
--- NOTE | 2025-03-02 16:33 | Electrocardiogram Report ---
Test Reason : Blood Pressure : */* mmHG Vent. Rate : 94 BPM Atrial Rate : 94 BPM P-R Int : 160 ms QRS Dur : 76 ms QT Int : 356 ms P-R-T Axes : 63 4 49 degrees QTcB Int : 445 ms Normal sinus rhythm Cannot rule out Anterior infarct (cited on or before 08-Feb-2025) Abnormal ECG When compared with ECG of 08-Feb-2025 19:59, Nonspecific T wave abnormality, improved in Lateral leads Confirmed by Arun Simental ([id number]) on 03/02/2025 4:32:41 PM Referred By: Paty Sauceda Confirmed By: Arun Simental
== END 2025-02-28 16:12 | disposition home or self-care (01) | DRG 378 ==
LOC: ED 14:41 → SUATTDRO 17:43 → 2S 17:43